=== PATIENT | female | born 1970 | race Caucasian/White ===

== ENCOUNTER → 2017-10-08 | Outpatient (CLI) | payer OTHER ==
[2017-10-08 11:07] VITALS: BP 143/70; PULSE 65; RESP 20; TEMP 97.9; BMI 52.4
[2017-10-08 13:16] LABS: HCT 43.6 % (34.0-46.0); MCH 28.9 pg (25.0-35.0); MCV 90.3 fL (80.0-100.0); Platelet Count 321 k/uL (150-450); RBC 4.83 m/uL (3.80-5.40); RDW 15.1 % (11.5-15.5); WBC 8.8 k/uL (3.8-10.6)
[2017-10-08 13:23] LABS: ALT 33 U/L (9-52); AST 15 U/L (14-36); Albumin 3.7 g/dL (3.5-5.0); Alkaline Phosphatase 82 U/L (38-126); Anion Gap 8 mmol/L; Blood Urea Nitrogen 11 mg/dL (7-17); Carbon Dioxide 27 mmol/L (22-30); Chloride 106 mmol/L (98-107); Cholesterol 150 mg/dL (<200); Glucose 119 mg/dL (74-99); HDL Cholesterol 48 mg/dL (40-60); LDL Cholesterol,Calculated 69 mg/dL (0-99); Potassium 4.2 mmol/L (3.5-5.1); Sodium 141 mmol/L (137-145); Total Bilirubin 0.4 mg/dL (0.2-1.3); Total Protein 6.3 g/dL (6.3-8.2); Triglycerides 163 mg/dL (<150)
[2017-10-08 18:43] LABS: Iron Saturation 23.49 (12.00-45.00)
[2017-10-08 18:54] LABS: Folate, Serum 8.7 ng/mL
[2017-10-08 20:43] LABS: Hemoglobin A1C 6.2 % (4.0-6.0)
--- NOTE | 2017-12-06 14:36 | P.HPBAR ---
Bariatric H&P - History & Physicial H&P Date: 10/08/17 History & Physicial: Visit/CC: 1st visit Patient initial contact: Initial weight: 138.482 kg Initial weight in pounds: 305.30 Height: 5 ft 4 in Initial BMI: 52.4 Last weight: Current weight: 138.482 kg Current weight in pounds: 305.30 Current BMI: 52.4 [place] body weight (based on NIH guidelines): 54.431 kg Excess body weight loss: 0.0% The patient is a 47 year-old F who presents for Bariatric Assessment. DATE OF SERVICE: 10/08/2017 REASON FOR CONSULTATION: Initial bariatric evaluation. HISTORY OF PRESENT ILLNESS: The patient is a 47-year-old female who presents with history of long-standing morbid obesity. She has tried weight loss programs such as Weight Watchers, Adipex, Qsemia and has lost 90 pounds. As a result of her obesity, she has developed lower back pain, knee pain, and bladder incontinence. She had inquired about duodenal switch. No personal family history of esophageal stomach cancer. She denies any food ALLERGIES. No reports of inflammatory bowel disease. She has an aunt with lupus. No reports of diarrhea. Her highest weight was 348 pounds. She has strong family history of morbid obesity including her mother. She has history of snoring. She has family history of diabetes including grandmother. She reports lower back pain including pain. She has history of bladder incontinence. She has family history of gallbladder disease including thyroid disorder. Separately, she often skips breakfast. At her height of 5 feet 4 inches, her ideal body weight is 144 pounds. She is 161 pounds overweight. Her body mass index reduced from 59.9 down to 52.4. PAST MEDICAL HISTORY: 1. Morbid obesity. 2. Body mass index of 59.9 down to 52.4. 3. Lower back pain. 4. Bladder incontinence. PAST SURGICAL HISTORY: 1. Appendectomy. 2. . HOME MEDICATIONS: Denies. ALLERGIES: PENICILLIN gives her rash. CODEINE gives her vomiting. SOCIAL HISTORY: No active tobacco use. FAMILY HISTORY: No family history of ulcerative colitis disease or Crohn's disease. Family history of morbid obesity. No lupus in family. No reports of stomach or esophageal cancer. Family history of diabetes. Family history of gallbladder disease and thyroid disorder. REVIEW OF ORGAN SYSTEMS: CONSTITUTIONAL: At her height of 5 feet 4 inches, her ideal body weight is 144 pounds. She is 161 pounds overweight. Her body mass index reduced from 59.9 down to 52.4. HEENT: Denies any active troubles with vision or hearing. No troubles with swallowing. ENDOCRINE: No diabetes. No hypothyroidism. CARDIOVASCULAR: No reports of palpitations or heart attacks or chest pain. RESPIRATORY: Has daytime somnolence including snoring and sleep apnea. No asthma. GI: Denies any bright red blood per rectum. Does have gastroesophageal reflux disease as described above. MUSCULOSKELETAL: Has lower back pain and joint pain. Has osteoarthritis of the hips and knees. NEURO: No headaches. No seizure disorders. PSYCH: No depression. No suicidal ideation. RHEUMATOLOGIC: No lupus. No rheumatoid arthritis. HEMATOLOGIC: Denies any abnormal bleeding or bruising. No personal history of DVTs. SKIN: No rash. No skin cancer. PHYSICAL EXAM: VITAL SIGNS: Height 5 foot 4 inches, weight 305 pounds. BMI 52.4 Vital Signs Temp 97.9 F 10/08/17 10:58 Pulse 65 10/08/17 10:58 Resp 20 10/08/17 10:58 BP 143/70 10/08/17 10:58 Pulse Ox GENERAL: Well-developed in no acute distress. HEENT: No scleral icterus. Extraocular movements grossly intact. Hears conversational speech. No nasal drainage. NECK: Supple without lymphadenopathy. CHEST: Nonlabored respirations with equal bilateral excursions. CARDIOVASCULAR: Regular rate, regular rhythm. Distal 2+ pulses. ABDOMEN: Obese, soft, nontender, nondistended. MUSCULOSKELETAL: No clubbing, cyanosis. Gross strength 5/5 distal lower extremities. 1+ pre-tibial pitting edema. NEURO: No focal or lateralizing signs. Cranial nerves 2 through 12 grossly within normal limits. PSYCH: Appropriate affect. Alert and oriented to person, place and time. SKIN: Good skin turgor. Well perfused. ASSESSMENT: 1. Morbid obesity due to excess calories. 2. Body mass index of 59.9 down to 52.4. 3. Osteoarthritis of the knees. 4. Hypertensive heart disease. 5. Osteoarthritis of the hips. 6. Dietary surveillance and counseling. 7. Family history of morbid obesity. 8. Gastroesophageal reflux disease. 9. Family history of gallbladder disease. PLAN: 1. Surgical options including a band, gastric bypass, sleeve gastrectomy were described in detail. Alternatives such as gastric balloon including duodenal switch were described. 2. The [place] [facility] data and outcomes calculator were described with surgical options. 3. Recommend a bariatric metabolic panel to evaluate for micro- including macronutrient deficiencies. 4. For history of daytime somnolence, recommend evaluation and treatment for sleep apnea. 5. Dietary surveillance and counseling was reviewed, I have asked increased protein intake to at least 60 grams daily. She has already lost 43 pounds. 6. Will need cardiac risk assessment. 7. Recommend medical risk assessment. 8. Psych assessment per insurance guidelines. 9. Follow up upon completion of upper endoscopy. 10. Recommend 12-lead EKG with history of hypertensive heart disease. 11. Recommend upper endoscopy for history of esophageal reflux disease. Thank you for this consultation. Laboratory Last Values WBC 8.8 k/uL (3.8-10.6) 10/08/17 11:56 RBC 4.83 m/uL (3.80-5.40) 10/08/17 11:56 Hgb 14.0 gm/dL (11.4-16.0) 10/08/17 11:56 Hct 43.6 % (34.0-46.0) 10/08/17 11:56 MCV 90.3 fL (80.0-100.0) 10/08/17 11:56 MCH 28.9 pg (25.0-35.0) 10/08/17 11:56 MCHC 32.0 g/dL (31.0-37.0) 10/08/17 11:56 RDW 15.1 % (11.5-15.5) 10/08/17 11:56 Plt Count 321 k/uL (150-450) 10/08/17 11:56 Sodium 141 mmol/L (137-145) 10/08/17 11:56 Potassium 4.2 mmol/L (3.5-5.1) 10/08/17 11:56 Chloride 106 mmol/L (98-107) 10/08/17 11:56 Carbon Dioxide 27 mmol/L (22-30) 10/08/17 11:56 Anion Gap 8 mmol/L 10/08/17 11:56 BUN 11 mg/dL (7-17) 10/08/17 11:56 Creatinine 0.70 mg/dL (0.52-1.04) 10/08/17 11:56 Est GFR (MDRD) Af Amer >60 (>60 ml/min/1.73 sqM) 10/08/17 11:56 Est GFR (MDRD) Non-Af >60 (>60 ml/min/1.73 sqM) 10/08/17 11:56 Glucose 119 mg/dL (74-99) H 10/08/17 11:[address] Glu mg/dL 131 10/08/17 11:56 Hemoglobin A1c 6.2 % (4.0-6.0) H 10/08/17 11:56 Calcium 9.0 mg/dL (8.4-10.2) 10/08/17 11:56 Iron 66 ug/dL (50-170) 10/08/17 11:56 TIBC 281 ug/dL (228-460) 10/08/17 11:56 Iron Saturation 23.49 (12.00-45.00) 10/08/17 11:56 Ferritin 92.6 ng/mL (10.0-291.0) 10/08/17 11:56 Total Bilirubin 0.4 mg/dL (0.2-1.3) 10/08/17 11:56 AST 15 U/L (14-36) 10/08/17 11:56 ALT 33 U/L (9-52) 10/08/17 11:56 Alkaline Phosphatase 82 U/L (38-126) 10/08/17 11:56 Total Protein 6.3 g/dL (6.3-8.2) 10/08/17 11:56 Albumin 3.7 g/dL (3.5-5.0) 10/08/17 11:56 Triglycerides 163 mg/dL (<150) H 10/08/17 11:56 Cholesterol 150 mg/dL (<200) 10/08/17 11:56 LDL Cholesterol, Calc 69 mg/dL (0-99) 10/08/17 11:56 HDL Cholesterol 48 mg/dL (40-60) 10/08/17 11:56 Vitamin B1 63 ug/L (38-122) 10/08/17 11:56 Vitamin B12 433.0 pg/mL (200.0-944.0) 10/08/17 11:56 Vitamin D 25-Hydroxy 13.0 ng/mL (30.0-100.0) L 10/08/17 11:56 Folate 8.7 ng/mL 10/08/17 11:56 TSH 0.718 mIU/L (0.465-4.680) 10/08/17 11:56 EKG EKG PERFORMED 10/08/17 11:56 Laboratory results reviewed demonstrating hypertriglyceridemia, diabetes type 2 , metabolic syndrome, vitamin D deficiency. EKG was abnormal. Past Medical History History of Any Multi-Drug Resistant Organisms: None Reported Smoking Status: Never smoker Surgical - Exam Vital Signs Temp Pulse Resp BP 97.9 F 65 20 143/70 10/08/17 10:58 10/08/17 10:58 10/08/17 10:58 10/08/17 10:58 Results - Labs 10/08/17 11:56 10/08/17 11:56 Bariatric Checklist Checklist: Plan: Checklist: EGD: 1. Hiatal hernia: 2. H. Pylori: HgbA1c: Vitamin D: Smoking: Never smoker Primary care physician referral: Dr Lawrence Psychiatry clearance: Cardiology clearance: Sleep study: Diet journal: VTE risk score: VTE risk level: Rehab needs at discharge:
== END | disposition home or self-care (01) ==
LOC: BARWHC3 10:40
PROVIDERS: ATTEND Surgery Plastic and Reconstructive Surgery
DX: Z48.815 Encounter for surgical aftercare following surgery on the digestive system (principal); E66.01 Morbid (severe) obesity due to excess calories; M17.0 Bilateral primary osteoarthritis of knee; I11.9 Hypertensive heart disease without heart failure; M16.0 Bilateral primary osteoarthritis of hip; K21.9 Gastro-esophageal reflux disease without esophagitis; Z01.818 Encounter for other preprocedural examination; E88.81 Metabolic syndrome and other insulin resistance; D50.9 Iron deficiency anemia, unspecified; E44.1 Mild protein-calorie malnutrition; E55.9 Vitamin D deficiency, unspecified; E11.9 Type 2 diabetes mellitus without complications; G47.30 Sleep apnea, unspecified; Z68.43 Body mass index [BMI] 50.0-59.9, adult; Z88.0 Allergy status to penicillin; Z88.5 Allergy status to narcotic agent; Z71.3 Dietary counseling and surveillance; Z98.890 Other specified postprocedural states
CPT/HCPCS: 36415; 80053; 80061; 82306; 82607; 82728; 82746; 83036; 83540; 83550; 84425; 84443; 85027; 93005; 99201

== ENCOUNTER 2018-02-10 08:45 | Day surgery (SDC) | payer OTHER ==
[2018-02-08 14:55] VITALS: BMI 51.8
[~2018-02-10 08:45] MED LIST: LACTATED RINGERS 1,000 ML IV SCH
[2018-02-10 09:28] VITALS: TEMP 98
[2018-02-10] MEDS ORDERED: LIDOCAINE 1% 20 ML VIAL (10MG/ML) FOR IV START INTRADERMA ONE (09:29)
[2018-02-10] MEDS ORDERED: LACTATED RINGERS 1,000 ML IV ONE (09:29)
--- NOTE | 2018-02-10 09:50 | P.GSHP ---
History of Present Illness H&P Date: 02/10/18 CHIEF COMPLAINT: GERD HISTORY OF PRESENT ILLNESS: The patient is a 48-year-old female who presents reports gastroesophageal reflux disease. Upper endoscopy was offered for further evaluation and management. PAST MEDICAL HISTORY: Please see list. PAST SURGICAL HISTORY: Please see list. MEDICATIONS: Please see list. ALLERGIES: Please see list. SOCIAL HISTORY: No illicit drug use FAMILY HISTORY: No reports of Crohn disease or ulcerative colitis. REVIEW OF ORGAN SYSTEMS: CONSTITUTIONAL: No reports of fevers or chills. GI: Denies any blood in stools or constipation. PHYSICAL EXAM: VITAL SIGNS: Stable GENERAL: Well-developed and pleasant in no acute distress. HEENT: No scleral icterus. Extraocular movements grossly intact. Moist buccal mucosa. NECK: Supple without lymphadenopathy. CHEST: Unlabored respirations. Equal bilateral excursions. CARDIOVASCULAR: Regular rate and rhythm. Distal 2+ pulses. ABDOMEN: Soft, nondistended. MUSCULOSKELETAL: No clubbing, cyanosis, or edema. ASSESSMENT: 1. Gastroesophageal reflux disease PLAN: 1. Recommend proceeding with an upper endoscopy Past Medical History Past Medical History: Diabetes Mellitus, GERD/Reflux Additional Past Medical History / Comment(s): borderline diabetes-watches diet History of Any Multi-Drug Resistant Organisms: None Reported Past Surgical History: Appendectomy, Section, Hysterectomy Past Anesthesia/Blood Transfusion Reactions: No Reported Reaction Smoking Status: Never smoker - Past Family History Mother Family Medical History: Cancer Medications and Allergies Home Medications Medication Instructions Recorded Confirmed Type Cholecalciferol [Vitamin D3] 1,000 unit PO DAILY 02/08/18 02/08/18 History Allergies Allergy/AdvReac Type Severity Reaction Status Date / Time codeine Allergy Vomiting Verified 02/08/18 12:35 Penicillins Allergy Rash/Hives Verified 02/08/18 12:35 Surgical - Exam Vital Signs Temp Pulse Resp BP Pulse Ox 98.0 F 87 18 127/78 98 02/10/18 09:26 02/10/18 09:26 02/10/18 09:26 02/10/18 09:26 02/10/18 09:26
[2018-02-10] MEDS ORDERED: PROPOFOL 10 MG/ML 20 ML VIAL IV ONE (10:01)
[2018-02-10] MEDS ORDERED: LIDOCAINE 1% INJ 10MG/ML (20 ML MDV) ONE (10:01)
[2018-02-10 10:21] VITALS: RESP 16
--- NOTE | 2018-02-10 10:22 | P.PCN ---
Date of Procedure: 02/10/18 Description of Procedure: PREOPERATIVE DIAGNOSIS: Gastroesophageal reflux disease. Morbid obesity. POSTOPERATIVE DIAGNOSIS: Morbid obesity. Gastritis. Gastroesophageal reflux disease. Diaphragmatic hiatal hernia without obstruction. OPERATION: Esophagogastroduodenoscopy with biopsies along antrum. SURGEON: Gina Ya MD ANESTHESIA: MAC. INDICATIONS: The patient is a 48-year-old female who presents with a history of reflux disease. Benefits and risks of the procedure were described. Informed consent was obtained. DESCRIPTION: The patient was brought into the endoscopy suite and laid in the left lateral decubitus position. An Olympus gastroscope was passed along the posterior oropharynx down to the distal esophagus where the squamocolumnar junction was encountered at 38 cm from the incisors. The stomach was entered and no bile reflux was found. Additional findings are listed below. Biopsies with cold forceps were obtained of the antrum. The first through third portion of the duodenum was examined and unremarkable. Retroflexion of the scope confirmed Hill grade 3 lower esophageal valve. The squamocolumnar junction demostrated LA grade A erosive esophagitis. The stomach was desufflated. The patient tolerated the procedure well. FINDINGS: Squamocolumnar junction 36 cm from the incisors. Diaphragmatic hiatus at 38 cm. Hiatal hernia 2 cm, sliding. Hill grade 3 lower esophageal valve. LA grade A erosive esophagitis. No active duodenitis. Mild gastritis. RECOMMENDATIONS: Further recommendations pending results of pathology report. Upper endoscopy as needed. Plan - Discharge Summary New Discharge Prescriptions: No Action Cholecalciferol [Vitamin D3] 1,000 unit PO DAILY Discharge Medication List Cholecalciferol [Vitamin D3] 1,000 unit PO DAILY 02/08/18 [History]
[2018-02-10 10:37] VITALS: BP 130/78; PULSE 78
== END 2018-02-10 11:15 | disposition home or self-care (01) ==
LOC: ORWHC2ENDO 08:45
PROVIDERS: ATTEND Surgery Plastic and Reconstructive Surgery
DX: K29.50 Unspecified chronic gastritis without bleeding (principal); K22.10 Ulcer of esophagus without bleeding; K21.9 Gastro-esophageal reflux disease without esophagitis; E11.9 Type 2 diabetes mellitus without complications; E66.01 Morbid (severe) obesity due to excess calories; K44.9 Diaphragmatic hernia without obstruction or gangrene; Z88.5 Allergy status to narcotic agent; Z88.0 Allergy status to penicillin; Z90.710 Acquired absence of both cervix and uterus; Z68.43 Body mass index [BMI] 50.0-59.9, adult
CPT/HCPCS: 88305; 43239; J2001; J2704

== ENCOUNTER → 2018-02-22 | Outpatient (CLI) | payer OTHER ==
[2018-02-22 14:14] VITALS: BMI 52.9
== END | disposition home or self-care (01) ==
LOC: BARWHC3 08:44
PROVIDERS: ATTEND Surgery Plastic and Reconstructive Surgery
DX: E66.01 Morbid (severe) obesity due to excess calories (principal)
CPT/HCPCS: 97804

== ENCOUNTER → 2018-02-24 | Outpatient (CLI) | payer OTHER ==
[2018-02-24 15:10] VITALS: BP 141/63; PULSE 82; RESP 16; TEMP 98; BMI 52.7
--- NOTE | 2018-03-20 14:37 | P.PN ---
Subjective Progress Note Date: 02/24/18 DATE OF SERVICE: 02/24/2018 CHIEF COMPLAINT: Bariatric assessment HISTORY OF PRESENT ILLNESS: The patient is a 48-year-old female who presents with history of long-standing morbid obesity. She has developed sleep apnea and hypertensive heart disease. She initially inquired of the duodenal switch and is evaluating her bariatric options. She completed an upper endoscopy. She is undergoing medical supervised weight loss. Her highest weight was 348 pounds. Since her last visit 5 months ago, she has gained 2 pounds. Today she comes in 307 pounds. Her previous weight was 305 pounds. At her height of 5 feet 4 inches, her ideal body weight is 144 pounds. She is 163 pounds overweight. Her body mass index reduced from 59.9 down to 52.8. PAST MEDICAL HISTORY: 1. Morbid obesity. 2. Body mass index of 59.9 down to 52.4. 3. Lower back pain. 4. Bladder incontinence. PAST SURGICAL HISTORY: 1. Appendectomy. 2. . HOME MEDICATIONS: Denies. ALLERGIES: PENICILLIN gives her rash. CODEINE gives her vomiting. SOCIAL HISTORY: No active tobacco use. FAMILY HISTORY: No family history of ulcerative colitis disease or Crohn's disease. Family history of morbid obesity. No lupus in family. No reports of stomach or esophageal cancer. Family history of diabetes. Family history of gallbladder disease and thyroid disorder. REVIEW OF ORGAN SYSTEMS: CONSTITUTIONAL: Her highest weight was 348 pounds. Since her last visit 5 months ago, she has gained 2 pounds. Today she comes in 307 pounds. Her previous weight was 305 pounds. At her height of 5 feet 4 inches, her ideal body weight is 144 pounds. She is 163 pounds overweight. Her body mass index reduced from 59.9 down to 52.8. HEENT: Denies any active troubles with vision or hearing. No troubles with swallowing. ENDOCRINE: No diabetes. No hypothyroidism. CARDIOVASCULAR: No reports of palpitations or heart attacks or chest pain. RESPIRATORY: Has daytime somnolence including snoring and sleep apnea. No asthma. GI: Denies any bright red blood per rectum. Does have gastroesophageal reflux disease as described above. MUSCULOSKELETAL: Has lower back pain and joint pain. Has osteoarthritis of the hips and knees. NEURO: No headaches. No seizure disorders. PSYCH: No depression. No suicidal ideation. RHEUMATOLOGIC: No lupus. No rheumatoid arthritis. HEMATOLOGIC: Denies any abnormal bleeding or bruising. No personal history of DVTs. SKIN: No rash. No skin cancer. PHYSICAL EXAM: VITAL SIGNS: Height 5 foot 4 inches, weight 305 pounds. BMI 52.4 Vital Signs Temp 97.9 F 10/08/17 10:58 Pulse 65 10/08/17 10:58 Resp 20 10/08/17 10:58 BP 143/70 10/08/17 10:58 Pulse Ox GENERAL: Well-developed in no acute distress. HEENT: No scleral icterus. Extraocular movements grossly intact. Hears conversational speech. No nasal drainage. NECK: Supple without lymphadenopathy. CHEST: Nonlabored respirations with equal bilateral excursions. CARDIOVASCULAR: Regular rate, regular rhythm. Distal 2+ pulses. ABDOMEN: Obese, soft, nontender, nondistended. MUSCULOSKELETAL: No clubbing, cyanosis. Gross strength 5/5 distal lower extremities. 1+ pre-tibial pitting edema. NEURO: No focal or lateralizing signs. Cranial nerves 2 through 12 grossly within normal limits. PSYCH: Appropriate affect. Alert and oriented to person, place and time. SKIN: Good skin turgor. Well perfused. LABS: Laboratory Last Values WBC 8.8 k/uL (3.8-10.6) 10/08/17 11:56 RBC 4.83 m/uL (3.80-5.40) 10/08/17 11:56 Hgb 14.0 gm/dL (11.4-16.0) 10/08/17 11:56 Hct 43.6 % (34.0-46.0) 10/08/17 11:56 MCV 90.3 fL (80.0-100.0) 10/08/17 11:56 MCH 28.9 pg (25.0-35.0) 10/08/17 11:56 MCHC 32.0 g/dL (31.0-37.0) 10/08/17 11:56 RDW 15.1 % (11.5-15.5) 10/08/17 11:56 Plt Count 321 k/uL (150-450) 10/08/17 11:56 Sodium 141 mmol/L (137-145) 10/08/17 11:56 Potassium 4.2 mmol/L (3.5-5.1) 10/08/17 11:56 Chloride 106 mmol/L (98-107) 10/08/17 11:56 Carbon Dioxide 27 mmol/L (22-30) 10/08/17 11:56 Anion Gap 8 mmol/L 10/08/17 11:56 BUN 11 mg/dL (7-17) 10/08/17 11:56 Creatinine 0.70 mg/dL (0.52-1.04) 10/08/17 11:56 Est GFR (MDRD) Af Amer >60 (>60 ml/min/1.73 sqM) 10/08/17 11:56 Est GFR (MDRD) Non-Af >60 (>60 ml/min/1.73 sqM) 10/08/17 11:56 Glucose 119 mg/dL (74-99) H 10/08/17 11:[address] Glu mg/dL 131 10/08/17 11:56 Hemoglobin A1c 6.2 % (4.0-6.0) H 10/08/17 11:56 Calcium 9.0 mg/dL (8.4-10.2) 10/08/17 11:56 Iron 66 ug/dL (50-170) 10/08/17 11:56 TIBC 281 ug/dL (228-460) 10/08/17 11:56 Iron Saturation 23.49 (12.00-45.00) 10/08/17 11:56 Ferritin 92.6 ng/mL (10.0-291.0) 10/08/17 11:56 Total Bilirubin 0.4 mg/dL (0.2-1.3) 10/08/17 11:56 AST 15 U/L (14-36) 10/08/17 11:56 ALT 33 U/L (9-52) 10/08/17 11:56 Alkaline Phosphatase 82 U/L (38-126) 10/08/17 11:56 Total Protein 6.3 g/dL (6.3-8.2) 10/08/17 11:56 Albumin 3.7 g/dL (3.5-5.0) 10/08/17 11:56 Triglycerides 163 mg/dL (<150) H 10/08/17 11:56 Cholesterol 150 mg/dL (<200) 10/08/17 11:56 LDL Cholesterol, Calc 69 mg/dL (0-99) 10/08/17 11:56 HDL Cholesterol 48 mg/dL (40-60) 10/08/17 11:56 Vitamin B1 63 ug/L (38-122) 10/08/17 11:56 Vitamin B12 433.0 pg/mL (200.0-944.0) 10/08/17 11:56 Vitamin D 25-Hydroxy 13.0 ng/mL (30.0-100.0) L 10/08/17 11:56 Folate 8.7 ng/mL 10/08/17 11:56 TSH 0.718 mIU/L (0.465-4.680) 10/08/17 11:56 EKG EKG PERFORMED 10/08/17 11:56 Glucose elevated Hemoglobin A1c elevated Triglycerides elevated Vitamin D low EGD FINDINGS: Squamocolumnar junction 36 cm from the incisors. Diaphragmatic hiatus at 38 cm. Hiatal hernia 2 cm, sliding. Hill grade 3 lower esophageal valve. LA grade A erosive esophagitis. No active duodenitis. Mild gastritis. Final Pathologic Diagnosis GASTRIC ANTRUM, BIOPSY: MODERATE CHRONIC GASTRITIS WITH FOCAL INTESTINAL METAPLASIA. EKG abnormal ASSESSMENT: 1. Morbid obesity due to excess calories. 2. Body mass index of 59.9 down to 52.4. 3. Osteoarthritis of the knees. 4. Hypertensive heart disease. 5. Osteoarthritis of the hips. 6. Dietary surveillance and counseling. 7. Family history of morbid obesity. 8. Gastroesophageal reflux disease. 9. Family history of gallbladder disease. 10. Hiatal hernia 11. Elevated hemoglobin A1c, prediabetes 12. Obstructive sleep apnea 13. Abnormal EKG 14. Vitamin D deficiency 15. Hypertriglyceridemia PLAN: 1. Recommend low-carb high-protein diet. 2. Recommend sleep study for obstructive sleep 3. EKG reviewed that is abnormal. Recommend cardiac risk assessment. 4. The bariatric consent form was reviewed in detail. 5. Vitamin D supplement 10,000 units daily advised. Objective - Vital Signs Vital signs: Vital Signs Temp 98.0 F 02/24/18 15:08 Pulse 82 02/24/18 15:08 Resp 16 02/24/18 15:08 BP 141/63 02/24/18 15:08 Pulse Ox Intake & Output 02/23/18 02/24/18 02/24/18 18:59 06:59 18:59 Weight 139.48 kg
== END | disposition home or self-care (01) ==
LOC: BARWHC3 13:37
PROVIDERS: ATTEND Surgery Plastic and Reconstructive Surgery
DX: E66.01 Morbid (severe) obesity due to excess calories (principal); I11.9 Hypertensive heart disease without heart failure; M17.0 Bilateral primary osteoarthritis of knee; M16.0 Bilateral primary osteoarthritis of hip; K21.9 Gastro-esophageal reflux disease without esophagitis; K44.9 Diaphragmatic hernia without obstruction or gangrene; R73.03 Prediabetes; G47.33 Obstructive sleep apnea (adult) (pediatric); R94.31 Abnormal electrocardiogram [ECG] [EKG]; E55.9 Vitamin D deficiency, unspecified; E78.1 Pure hyperglyceridemia; Z98.890 Other specified postprocedural states; Z88.5 Allergy status to narcotic agent; Z71.3 Dietary counseling and surveillance; Z83.79 Family history of other diseases of the digestive system; Z88.0 Allergy status to penicillin; Z83.3 Family history of diabetes mellitus; Z68.43 Body mass index [BMI] 50.0-59.9, adult
CPT/HCPCS: 99211

== ENCOUNTER → 2018-06-02 | Outpatient (CLI) | payer OTHER ==
[2018-06-02 13:29] VITALS: BP 143/83; PULSE 73; RESP 16; TEMP 98.6; BMI 53.1
--- NOTE | 2018-06-02 14:18 | P.PN ---
Subjective Progress Note Date: 06/02/18 DATE OF SERVICE: 06/02/2018 CHIEF COMPLAINT: Bariatric assessment HISTORY OF PRESENT ILLNESS: The patient is a 48-year-old female who presents with history of long-standing morbid obesity. She has developed sleep apnea and hypertensive heart disease. She completed medical supervised weight loss. Her highest weight was 348 pounds. Since her last visit 3 months ago, she has gained 3 pounds. Today she comes in 309 pounds. Her previous weight was 306 pounds. At her height of 5 feet 4 inches, her ideal body weight is 144 pounds. She is 165 pounds overweight. Her body mass index reduced from 59.9 down to 53.2. She has completed her medical supervised weight loss. She reports gallbladder symptoms including right upper quadrant abdominal pain especially after eating fatty foods. PAST MEDICAL HISTORY: 1. Morbid obesity. 2. Body mass index of 59.9, initial 3. Lower back pain. 4. Bladder incontinence. PAST SURGICAL HISTORY: 1. Appendectomy. 2. . HOME MEDICATIONS: Denies. ALLERGIES: PENICILLIN gives her rash. CODEINE gives her vomiting. SOCIAL HISTORY: No active tobacco use. FAMILY HISTORY: No family history of ulcerative colitis disease or Crohn's disease. Family history of morbid obesity. No lupus in family. No reports of stomach or esophageal cancer. Family history of diabetes. Family history of gallbladder disease and thyroid disorder. REVIEW OF ORGAN SYSTEMS: CONSTITUTIONAL: Her highest weight was 348 pounds. Since her last visit 3 months ago, she has gained 3 pounds. Today she comes in 309 pounds. Her previous weight was 306 pounds. At her height of 5 feet 4 inches, her ideal body weight is 144 pounds. She is 165 pounds overweight. Her body mass index reduced from 59.9 down to 53.2. HEENT: Denies any active troubles with vision or hearing. No troubles with swallowing. ENDOCRINE: No diabetes. No hypothyroidism. CARDIOVASCULAR: No reports of palpitations or heart attacks or chest pain. RESPIRATORY: Has daytime somnolence including snoring and sleep apnea. No asthma. GI: Denies any bright red blood per rectum. Does have gastroesophageal reflux disease as described above. MUSCULOSKELETAL: Has lower back pain and joint pain. Has osteoarthritis of the hips and knees. NEURO: No headaches. No seizure disorders. PSYCH: No depression. No suicidal ideation. RHEUMATOLOGIC: No lupus. No rheumatoid arthritis. HEMATOLOGIC: Denies any abnormal bleeding or bruising. No personal history of DVTs. SKIN: No rash. No skin cancer. PHYSICAL EXAM: VITAL SIGNS: Height 5 foot 4 inches, weight 309 pounds. BMI 53.2 Vital Signs Temp 98.6 F 06/02/18 13:26 Pulse 73 06/02/18 13:26 Resp 16 06/02/18 13:26 BP 143/83 06/02/18 13:26 Pulse Ox GENERAL: Well-developed in no acute distress. HEENT: No scleral icterus. Extraocular movements grossly intact. Hears conversational speech. No nasal drainage. NECK: Supple without lymphadenopathy. CHEST: Nonlabored respirations with equal bilateral excursions. CARDIOVASCULAR: Regular rate, regular rhythm. Distal 2+ pulses. ABDOMEN: Obese, soft, nontender, nondistended. MUSCULOSKELETAL: No clubbing, cyanosis. Gross strength 5/5 distal lower extremities. NEURO: No focal or lateralizing signs. Cranial nerves 2 through 12 grossly within normal limits. PSYCH: Appropriate affect. Alert and oriented to person, place and time. SKIN: Good skin turgor. Well perfused. ASSESSMENT: 1. Morbid obesity due to excess calories. 2. Body mass index of 59.9 down to 53.2. 3. Osteoarthritis of the knees. 4. Hypertensive heart disease. 5. Osteoarthritis of the hips. 6. Dietary surveillance and counseling. 7. Family history of morbid obesity. 8. Gastroesophageal reflux disease. 9. Family history of gallbladder disease. 10. Hiatal hernia 11. Elevated hemoglobin A1c, prediabetes 12. Obstructive sleep apnea 13. Abnormal EKG 14. Vitamin D deficiency 15. Hypertriglyceridemia PLAN: 1. All her bariatric profile was reviewed. 2. Recommend ultrasound of gallbladder for gallstones. 3. She has agreed to proceed with her gastric bypass. 4. Bariatric options between a sleeve, band and a Prateek-en-Y gastric bypass were reviewed in detail. She elected for a gastric bypass. Robotic assisted approach described. 5. The [place] [facility] Data was also reviewed with benefits and risks as described. 6. An 8 page second-generation bariatric consent form was reviewed in detail including potential of bleeding, infection, leaks, adequate weight loss, nutritional deficiencies which he demonstrated understanding of the risks. 7. A 2 week high-protein low caloric 800 kcal diet described to address hepatomegaly. 8. Preoperative labs including complete metabolic panel and CBC with type and screen recommended. 9. DVT prophylaxis per [place] [facility] collaborative. 10. Antibiotic prophylaxis. 11. Inpatient hospitalization anticipated for more than 2 nights. 11. All questions and concerns were addressed with the patient. 12. Recommended dietary classes. Objective - Vital Signs Vital signs: Vital Signs Temp 98.6 F 06/02/18 13:26 Pulse 73 06/02/18 13:26 Resp 16 06/02/18 13:26 BP 143/83 06/02/18 13:26 Pulse Ox Intake & Output 06/01/18 06/02/18 06/02/18 18:59 06:59 18:59 Weight 140.642 kg
== END | disposition home or self-care (01) ==
LOC: BARWHC3 13:12
PROVIDERS: ATTEND Surgery Plastic and Reconstructive Surgery
DX: E66.01 Morbid (severe) obesity due to excess calories (principal); K21.9 Gastro-esophageal reflux disease without esophagitis; G47.33 Obstructive sleep apnea (adult) (pediatric); I11.9 Hypertensive heart disease without heart failure; R10.11 Right upper quadrant pain; M17.0 Bilateral primary osteoarthritis of knee; M16.0 Bilateral primary osteoarthritis of hip; R73.03 Prediabetes; K44.9 Diaphragmatic hernia without obstruction or gangrene; R94.31 Abnormal electrocardiogram [ECG] [EKG]; E55.9 Vitamin D deficiency, unspecified; E78.1 Pure hyperglyceridemia; Z71.3 Dietary counseling and surveillance; Z83.49 Family history of other endocrine, nutritional and metabolic diseases; Z83.79 Family history of other diseases of the digestive system; Z88.0 Allergy status to penicillin; Z68.43 Body mass index [BMI] 50.0-59.9, adult; Z88.5 Allergy status to narcotic agent; Z98.890 Other specified postprocedural states
CPT/HCPCS: 99211

== ENCOUNTER 2018-06-21 11:00 | Inpatient (IN) | payer OTHER ==
[2018-07-05] MEDS ORDERED: DEXAMETHASONE SOD PHOSPHATE 10 MG/ML 1 ML VIAL IV ONE (05:20)
[2018-07-05] MEDS ORDERED: ONDANSETRON 4 MG/2 ML VIAL IVP ONE (05:20)
[2018-07-05] MEDS ORDERED: SCOPOLAMINE 1.5MG/72HR PATCH TRANSDERM ONE (05:20)
[2018-07-05] MEDS ORDERED: LIDOCAINE 1% 20 ML VIAL (10MG/ML) FOR IV START INTRADERMA PRN (05:20)
[2018-07-05] MEDS ORDERED: fentaNYL (PF) 50 MCG/ML 2 ML AMP IV PRN (05:20)
[2018-07-05] MEDS ORDERED: ENOXAPARIN 40 MG/0.4 ML SYRINGE SQ STA (07:36)
[2018-07-05] MEDS ORDERED: CHLORHEXIDINE GLUCONATE 15 ML CUP MUCOUS MEM ONE (07:36)
[2018-07-05] MEDS ORDERED: PANTOPRAZOLE 40 MG/10 ML VIAL IV STA (07:36)
[2018-07-05] MEDS ORDERED: SCOPOLAMINE 1.5MG/72HR PATCH TRANSDERM STA (07:36)
--- NOTE | 2018-07-05 07:36 | P.GSHP ---
History of Present Illness H&P Date: 07/05/18 DATE OF SERVICE: 07/05/2018 CHIEF COMPLAINT: Morbid obesity HISTORY OF PRESENT ILLNESS: The patient is a 48-year-old female who presents with history of long-standing morbid obesity. She has developed sleep apnea and hypertensive heart disease. She is looking into the gastric bypass. She completed an upper endoscopy. She is completed medical supervised weight loss. Her highest weight was 348 pounds. At her height of 5 feet 4 inches, her ideal body weight is 144 pounds. She is 163 pounds overweight. Her body mass index reduced from 59.9 down to 52.8. PAST MEDICAL HISTORY: 1. Morbid obesity. 2. Body mass index of 59.9 down to 52.4. 3. Lower back pain. 4. Bladder incontinence. PAST SURGICAL HISTORY: 1. Appendectomy. 2. . HOME MEDICATIONS: Denies. ALLERGIES: PENICILLIN gives her rash. CODEINE gives her vomiting. SOCIAL HISTORY: No active tobacco use. FAMILY HISTORY: No family history of ulcerative colitis disease or Crohn's disease. Family history of morbid obesity. No lupus in family. No reports of stomach or esophageal cancer. Family history of diabetes. Family history of gallbladder disease and thyroid disorder. REVIEW OF ORGAN SYSTEMS: CONSTITUTIONAL: Her highest weight was 348 pounds. Since her last visit 5 months ago, she has gained 2 pounds. Today she comes in 307 pounds. Her previous weight was 305 pounds. At her height of 5 feet 4 inches, her ideal body weight is 144 pounds. She is 163 pounds overweight. Her body mass index reduced from 59.9 down to 52.8. HEENT: Denies any active troubles with vision or hearing. No troubles with swallowing. ENDOCRINE: No diabetes. No hypothyroidism. CARDIOVASCULAR: No reports of palpitations or heart attacks or chest pain. RESPIRATORY: Has daytime somnolence including snoring and sleep apnea. No asthma. GI: Denies any bright red blood per rectum. Does have gastroesophageal reflux disease as described above. MUSCULOSKELETAL: Has lower back pain and joint pain. Has osteoarthritis of the hips and knees. NEURO: No headaches. No seizure disorders. PSYCH: No depression. No suicidal ideation. RHEUMATOLOGIC: No lupus. No rheumatoid arthritis. HEMATOLOGIC: Denies any abnormal bleeding or bruising. No personal history of DVTs. SKIN: No rash. No skin cancer. PHYSICAL EXAM: VITAL SIGNS: Height 5 foot 4 inches, weight 305 pounds. BMI 52.4 GENERAL: Well-developed in no acute distress. HEENT: No scleral icterus. Extraocular movements grossly intact. Hears conversational speech. No nasal drainage. NECK: Supple without lymphadenopathy. CHEST: Nonlabored respirations with equal bilateral excursions. CARDIOVASCULAR: Regular rate, regular rhythm. Distal 2+ pulses. ABDOMEN: Obese, soft, nontender, nondistended. MUSCULOSKELETAL: No clubbing, cyanosis. Gross strength 5/5 distal lower extremities. 1+ pre-tibial pitting edema. NEURO: No focal or lateralizing signs. Cranial nerves 2 through 12 grossly within normal limits. PSYCH: Appropriate affect. Alert and oriented to person, place and time. SKIN: Good skin turgor. Well perfused. ASSESSMENT: 1. Morbid obesity due to excess calories. 2. Body mass index of 59.9 down to 52.4. 3. Osteoarthritis of the knees. 4. Hypertensive heart disease. 5. Osteoarthritis of the hips. 6. Dietary surveillance and counseling. 7. Family history of morbid obesity. 8. Gastroesophageal reflux disease. 9. Family history of gallbladder disease. 10. Hiatal hernia 11. Elevated hemoglobin A1c, prediabetes 12. Obstructive sleep apnea 13. Abnormal EKG 14. Vitamin D deficiency 15. Hypertriglyceridemia PLAN: 1. Benefits and risks of gastric bypass robotic approach was described in detail. 2. Inpatient hospitalization over 2 nights described. 3. DVT prophylaxis. 4. Antibiotic prophylaxis. Past Medical History Past Medical History: Sleep Apnea/CPAP/BIPAP Additional Past Medical History / Comment(s): borderline diabetes-watches diet, cpap machine History of Any Multi-Drug Resistant Organisms: None Reported Past Surgical History: Appendectomy, Section, Hysterectomy Past Anesthesia/Blood Transfusion Reactions: No Reported Reaction Past Psychological History: No Psychological Hx Reported Smoking Status: Never smoker Past Alcohol Use History: None Reported Past Drug Use History: None Reported - Past Family History Mother Family Medical History: Cancer Medications and Allergies Home Medications Medication Instructions Recorded Confirmed Type Cholecalciferol [Vitamin D3] 1,000 unit PO DAILY 02/08/18 06/23/18 History Calcium Citrate 250 mg PO DAILY 02/22/18 06/23/18 History Allergies Allergy/AdvReac Type Severity Reaction Status Date / Time codeine Allergy Vomiting Verified 06/23/18 15:33 Penicillins Allergy Rash/Hives Verified 06/23/18 15:33
[2018-07-05] MEDS: LACTATED RINGERS 1,000 ML IV SCH (08:13)
[2018-07-05] MEDS ORDERED: BUPIVACAIN-EPI 0.5%-1:200,000 30 ML VIAL SQ ONE ×2 (09:05→10:19)
[2018-07-05] MEDS ORDERED: LIDOCAINE 1% INJ 10MG/ML (20 ML MDV) ONE (09:45)
[2018-07-05] MEDS ORDERED: MIDAZOLAM 2 MG/2 ML VIAL ONE (09:45)
[2018-07-05] MEDS ORDERED: LABETALOL 5 MG/ML VIAL MDV ONE (09:45)
[2018-07-05] MEDS ORDERED: PROPOFOL 10 MG/ML 20 ML VIAL IV ONE (09:45)
[2018-07-05] MEDS ORDERED: SUCCINYLCHOLINE CHLORIDE 100 MG/5 ML SYR IV ONE (09:45)
[2018-07-05] MEDS ORDERED: GLYCOPYRROLATE 0.2 MG/ML 2 ML VIAL ONE (09:45)
[2018-07-05] MEDS ORDERED: HYDROmorphone (PF) 1 MG/ML ONE (09:45)
[2018-07-05] MEDS ORDERED: NEOSTIGMINE 1 MG/ML 10 ML VIAL ONE (09:45)
[2018-07-05] MEDS ORDERED: ROCURONIUM BROMIDE 10 MG/ML 10 ML VIAL IV ONE (09:45)
[2018-07-05] MEDS ORDERED: INDOCYANINE GREEN 25 MG VIAL IV ONE (09:45)
[2018-07-05] MEDS ORDERED: fentaNYL (PF) 50 MCG/ML 2 ML AMP ONE (09:45)
[2018-07-05] MEDS ORDERED: ePHEDrine SULFATE/0.9% NACL/PF 50 MG/5 ML SYRINGE IV ONE (09:45)
[2018-07-05] MEDS ORDERED: INDOCYANINE GREEN 25 MG VIAL IV STA (10:13)
[2018-07-05] MEDS ORDERED: LACTATED RINGERS 1,000 ML IV ONE (11:00)
[2018-07-05] MEDS ORDERED: diphenhydrAMINE 50 MG/ML 1 ML VIAL IVP PRN (13:29)
[2018-07-05] MEDS ORDERED: NALOXONE 0.4 MG/ML 1 ML VIAL IV PRN (13:29)
[2018-07-05] MEDS ORDERED: ACETAMINOPHEN IV (For NPO) 1,000 MG in EMPTY BAG 1 BAG IVPB ONE (13:29)
--- NOTE | 2018-07-05 13:29 | P.OP ---
Date of Procedure: 07/05/18 Description of Procedure: SURGEON: JYOTI PERERA MD PUBLISHING DIRECTOR: 1. DEYANIRA GARCIA 2. BJORN BASILIO PREOPERATIVE DIAGNOSES: 1. Morbid obesity due to excess calories. 2. Body mass index of 59.9 down to 52.4. 3. Osteoarthritis of the knees. 4. Hypertensive heart disease. 5. Osteoarthritis of the hips. 6. Dietary surveillance and counseling. 7. Family history of morbid obesity. 8. Gastroesophageal reflux disease. 9. Family history of gallbladder disease. 10. Hiatal hernia 11. Elevated hemoglobin A1c, prediabetes 12. Obstructive sleep apnea 13. Abnormal EKG 14. Vitamin D deficiency 15. Hypertriglyceridemia 16. Symptomatic gallstones POSTOPERATIVE DIAGNOSES: 1. Morbid obesity due to excess calories. 2. Body mass index of 59.9 down to 52.4. 3. Osteoarthritis of the knees. 4. Hypertensive heart disease. 5. Osteoarthritis of the hips. 6. Dietary surveillance and counseling. 7. Family history of morbid obesity. 8. Gastroesophageal reflux disease. 9. Family history of gallbladder disease. 10. Hiatal hernia 11. Elevated hemoglobin A1c, prediabetes 12. Obstructive sleep apnea 13. Abnormal EKG 14. Vitamin D deficiency 15. Hypertriglyceridemia 16. Symptomatic gallstones OPERATION: 1. Robotic-assisted da Ross Xi laparoscopic cholecystectomy, multiport with FIREFLY 2. Robotic assisted da Ross Xi laparoscopic Alan-en-Y gastric bypass, 100 cm antecolic antegastric Alan limb, with 25 mm EEA. 3. Intraoperative esophagogastrojejunoscopy. ANESTHESIA: GETA and local ESTIMATED BLOOD LOSS: 5 mL SPECIMENS REMOVED: Gallbladder COMPLICATIONS: NONE. INDICATIONS: The patient is a 48-year-old female who presents with history of long-standing morbid obesity. She has developed sleep apnea and hypertensive heart disease. She is looking into the gastric bypass. She completed an upper endoscopy. She is completed medical supervised weight loss. Her highest weight was 348 pounds. At her height of 5 feet 4 inches, her ideal body weight is 144 pounds. She is 163 pounds overweight. Her body mass index reduced from 59.9 down to 52.8. Today she comes in weighing 297 pounds. Additionally, patient had symptomatic gallstones confirmed on ultrasound. She now presents to undergo robotic assisted gastric bypass and cholecystectomy. A second- generation bariatric consent form was described in detail including the possibility of protein malnutrition, leaks, gastrojejunal stricture, venous thrombosis, need for further surgery for which she demonstrated understanding. Benefits and risks of the procedure were described at length. Informed consent was obtained. DESCRIPTION: The patient was brought into the operating room theater. She was placed supine. She had received Lovenox subcutaneously for DVT prophylaxis. Additionally she Peridex oral solution as an oral decontaminant was placed per anesthesia. After general induction, the abdomen was prepped and draped in standard sterile fashion. Ioban draping was placed along the abdomen. A robotic da Ross Xi system was prepped and primed. The xiphoid to umbilicus was measured of 24 cm. Proposed port sites were marked with indelible marker along the anterior axillary line bilaterally, mid clavicular line bilaterally with each port marked 10 cm from each other. The acute care certified nursing assistant port was marked along the right lateral lower abdominal wall. The robotic stapler port was marked for the right midclavicular line including along the left midclavicular line. A 5 mm 0 degrees laparoscopic trocar entry was performed along the left upper quadrant. The abdomen was insufflated to 15 mmHg pressure, which she tolerated well. Diagnostic laparoscopy demonstrated no injury to bowel, viscera, or mesentery. The liver surface was sharp and unremarkable consistent with her 2 week high-protein low calorie diet. No large hiatal hernia was encountered. An 8 mm camera port was placed left lateral to the umbilicus at the epigastrium , 15 cm distal to the xiphoid. Next, 12-mm robot stapler port was placed along the right mid abdomen. An 12 mm port was exchanged along the left upper quadrant. An 8 mm port was placed on the left lateral abdominal wall under direct localization. Another 8-mm port was placed along the right upper lateral abdominal wall. Please note that the ports were placed 18 to 20 cm away from the target anatomy of the stomach. Care was taken to check that each robotic arm was safely away from collision with the bed or the patient. At the epigastrium, a medium sized Kaur liver retractor was placed under direct visualization with the Iron Sterilization Technician placed under the right shoulder of the patient. The patient was repositioned in reverse Trendelenburg position at 14-degress after lowering the bed. The robot was docked over the patient. Using grasper for arm 3, a grasper for arm 1, including vessel sealer for arm 4 , the robotic system was docked and primed as described. Instruments were interchanged by the acute care certified nursing assistant including endoscissors, the needle pile driver operator helper, and stapler. I had sat at the console. The patient was injected with indocyanine green. The gallbladder fundus was retracted over the dome of the liver. Initial attention was brought to the infundibulum which was gently retracted in the inferior lateral approach. Using a grasper, the cystic duct including the cystic artery was carefully skeletonized. FIREFLY was used to identify the cystic artery and cystic structures. Large PLASTIC clips were used throughout the entire case. Using a clip retail store assistant 2 clips were placed proximally, and 1 clip was placed distally along the cystic duct and then cauterized with the cautery. Again care was taken to avoid any injury to the biliary tree as the common bile duct was clearly visualized during this portion of dissection. Next, the cystic artery was similarly clipped and cauterized. Electro-Bovie cautery was used to remove the gallbladder from the hepatic fossa. Hemostasis was checked and found to be adequate. The robot was undocked. The robotic arms were repositioned for the gastric bypass portion of the case. Next, the transverse mesocolon was reflected into the upper abdomen preparing for the jejunojejunostomy portion of the case. The ligament of Treitz was identified and measured 60 cm antegrade and marked using 3-0 Silk. The jejunum was divided at the 60 cm point using 45-mm white loads above the suture measurement. The biliopancreatic limb was held in place. The Alan limb was measured 100 cm in an antegrade fashion to avoid tension along the proposed gastrojejunal anastomosis. At 100 cm along the anti-mesenteric border of the Alan limb, a jejunojejunostomy was proposed whereby enterotomies were created along the biliopancreatic limb including the Alan limb using a Bovie cautery. A stay suture of 3-0 Slik was placed to align and create the anastomosis. The enterotomies along the anti-mesenteric borders were created followed by unidirectional fire from the patient's right side using 2 - 45 mm white load Smart Wire Grid technology robotic stapler. The jejunojejunostomy was found to be hemostatic. The enterotomy was closed after horizontal mattress stitch of 3-0 silk used to elevate the enterotomy followed by closure with the robotic stapler white load. The jejunal limb was temporarily tacked along the left upper quadrant. Attention was now brought to the creation of the gastrojejunostomy. Along the lesser curvature of the stomach between the second and third veins, dissection was made along the retrogastric space to allow first firing of the robotic staple. Blue loads of 6 - 45 mm staplers were used to divide the stomach to create the gastric pouch. The patient was then prepared for placement of a Orvil. The patient was Mallampati 2. A 25-mm Orvil was selected for placement by the nurse bulb filler. The Orvil tubing was placed anterior to the staple line of the gastric pouch and brought out through the left inferior lateral port. I re-scrubbed into the case. The robotic arms were temporarily undocked. The Orvil was then carefully and successfully navigated with the help of the nurse bulb filler into the gastric pouch. The sutures were identified and divided. The tubing was from the 25 mm anvil. As the Orvil had been placed, the blind jejunal limb was brought proximally into the upper abdomen. No torsion was found upon the Alan limb. Mild tension was identified as the limb was brought along the upper abdomen. The blind jejunal limb was previously opened using endo -scissors with cautery. The 25-mm EEA stapler was brought through the left anterior lateral port site from the left side. The EEA stapler was brought through the open jejunal limb and its needle was deployed at the antimesenteric border where the anvil were mated for approximately 1 minute upon firing. The stapler was removed after irrigating the shaft of the instrument with warm normal saline. Donuts were found to be intact and on both sides. The da Ross Xi robot arms were then re-docked. I sat at the console. The open jejunal limb defect was closed using 45 mm white loads after releasing any tension from the blind jejunal limb. Care was taken to avoid any long blind limb to avoid candycane syndrome. Reinforcement sutures were placed along the gastrojejunal anastomosis using 3-0 Vicryl. The Handy and jejunojejunostomy mesenteric defects were obliterated by her intra-abdominal fat. I then went to the head of the bed to perform the esophagogastrojejunoscopy and a leak test. An Olympus gastroscope was passed along the posterior oropharynx which was unremarkable for any injury to the vocal cords. The scope was passed down to the proximal portion of the pouch, whereby no active bleeding was encountered. Excellent visualization of the gastrojejunostomy anastomosis, including the Alan limb was encountered with endoscopic image obtained. The anastomosis was found to be patent. The gastrointestinal tract was desufflated. No evidence of intraoperative leak was encountered as the gastric pouch and anastomosis were submerged under normal saline solution. The robot was then undocked. I then went back to the bedside of the patient, whereby with coordinated effort of the acute care certified nursing assistant, irrigation was aspirated from the upper abdominal cavity. Tisseel was placed circumferentially over the anastomosis of the gastrojejunostomy. The fascial defect of the EEA stapler was closed with her fascia and subcutaneous tissue. All instruments and pneumoperitoneum were evacuated from the abdominal cavity. The port correlating with the EEA stapler device was cleansed with normal saline solution and hydrogen peroxide. The rest of incisions were reapproximated using 4-0 Monocryl in an interrupted subcuticular fashion. Local anesthetic was infiltrated along the skin for postop analgesia. Liquid glue was applied to the skin. OptiFoam dressing was placed along the EEA stapler site. At the end of the procedure, needle, sponge and instrument count had been verified correct by the surgical physician assistant. She had tolerated the procedure well and was extubated and taken to the postanesthesia unit in stable condition. Intraoperative findings were described to the patient's family who were very pleased with the level of care. Total console time 95 minutes for gastric bypass Total console time 19 minutes for cholecystectomy Operative Findings: 1. Biliopancreatic limb 60 cm 2. Bypass performed using 100 cm alan limb secondary to avoid increased tension at 150 cm. 3. Correia defect and jejunojejunostomy defect obliterated by moderate intra- abdominal fat. 4. Leak test negative with gastrojejunal anastomosis patent and hemostatic. 5. Robotic staplers total of 13 combined blue white 8 -45 mm used and 7 staplers blue used to gastric pouch 6. Reinforcement sutures were placed along the gastrojejunal anastomosis 7. Left lower quadrant adhesions from sigmoid colon undisturbed
[2018-07-05] MEDS ORDERED: ACETAMINOPHEN ORAL SUSP 160 MG/5 ML CUP PO PRN (13:32)
[2018-07-05 14:22] LABS: Glucose,Whole Blood 220 mg/dL (75-99)
[2018-07-05 15:19] VITALS: BMI 50.2
[2018-07-05] MEDS: 0.9% NACL WITH KCL 20 MEQ/L 1,000 ML IV SCH (15:57)
[2018-07-05] MEDS: ONDANSETRON 4 MG/2 ML VIAL IVP PRN (16:07)
[2018-07-05] MEDS: ALBUTEROL NEBULIZED 2.5 MG/3 ML INHALATION SCH ×2 (16:12→20:10)
[2018-07-05] MEDS: HYOSCYAMINE ORAL DROPS 1.875 MG/15 ML BOTTLE PO SCH (17:44)
[2018-07-05] MEDS: SIMETHICONE 40 MG/0.6 ML DROPS 2,000 MG/30 ML BOTTLE PO SCH (17:45)
[2018-07-05] MEDS: HYDROmorphone 1 MG/ML 1 ML SYRINGE IVP PRN (20:50)
[2018-07-06] MEDS: 0.9% NACL WITH KCL 20 MEQ/L 1,000 ML IV SCH ×2 (00:44→06:02)
[2018-07-06] MEDS: ONDANSETRON 4 MG/2 ML VIAL IVP PRN (00:47)
[2018-07-06] MEDS: SIMETHICONE 40 MG/0.6 ML DROPS 2,000 MG/30 ML BOTTLE PO SCH ×3 (00:54→12:16)
[2018-07-06] MEDS: HYOSCYAMINE ORAL DROPS 1.875 MG/15 ML BOTTLE PO SCH ×3 (00:56→12:19)
[2018-07-06] MEDS: HYDROmorphone 1 MG/ML 1 ML SYRINGE IVP PRN ×3 (00:56→09:25)
[2018-07-06] MEDS: LACTATED RINGERS 1,000 ML IV SCH (03:49)
[2018-07-06 07:27] LABS: Basophils % (A) 0 %; Eosinophils % (A) 0 %; HCT 42.1 % (34.0-46.0); HGB 13.8 gm/dL (11.4-16.0); Lymphocytes # (A) 1.5 k/uL (1.0-4.8); Lymphocytes % (A) 8 %; MCH 28.7 pg (25.0-35.0); MCHC 32.7 g/dL (31.0-37.0); MCV 87.8 fL (80.0-100.0); Mean Platelet Volume 7.3; Monocytes # (A) 0.9 k/uL (0-1.0); Monocytes % (A) 5 %; Neutrophils # (A) 16.2 k/uL (1.3-7.7); Neutrophils % (A) 86 %; Platelet Count 434 k/uL (150-450); RDW 15.1 % (11.5-15.5); WBC 18.8 k/uL (3.8-10.6)
[2018-07-06 07:38] LABS: Anion Gap 6 mmol/L; Blood Urea Nitrogen 6 mg/dL (7-17); Calcium 8.8 mg/dL (8.4-10.2); Carbon Dioxide 28 mmol/L (22-30); Chloride 106 mmol/L (98-107); Phosphorus 3.5 mg/dL (2.5-4.5); Potassium 4.8 mmol/L (3.5-5.1); Sodium 140 mmol/L (137-145)
[2018-07-06] MEDS ORDERED: 0.9% NACL WITH KCL 20 MEQ/L 1,000 ML IV SCH (08:00)
[2018-07-06] MEDS ORDERED: DEXAMETHASONE SOD PHOSPHATE 10 MG/ML 1 ML VIAL IV STA (08:57)
[2018-07-06] MEDS ORDERED: ENOXAPARIN 40 MG/0.4 ML SYRINGE SQ SCH (09:00)
[2018-07-06] MEDS ORDERED: PANTOPRAZOLE 40 MG/10 ML VIAL IV SCH (09:00)
[2018-07-06] MEDS: ALBUTEROL NEBULIZED 2.5 MG/3 ML INHALATION SCH ×3 (09:05→16:01)
--- NOTE | 2018-07-06 09:58 | P.PN ---
Subjective Progress Note Date: 07/05/18 She reports nausea upon ambulation. She is urinating well. Pain is controlled. Objective - Vital Signs Vital signs: Vital Signs Temp 98.5 F 07/06/18 06:51 Pulse 75 07/06/18 08:55 Resp 20 07/06/18 08:55 BP 122/76 07/06/18 06:51 Pulse Ox 95 07/06/18 08:55 Intake & Output 07/05/18 07/06/18 07/06/18 18:59 06:59 18:59 Intake Total 1800 1200 Output Total 290 Balance 1510 1200 Weight 134.9 kg Intake: IV 1800 Intake, IV Titration 1200 Amount 0.9% NaCl with KCl 20 Meq 1200 /l 1,000 ml @ 150 mls/hr IV .[id number] JOON Rx#: [id number] Oral 0 Output: Urine 285 Estimated Blood Loss 5 Other: # Voids 1 - Exam ABDOMEN: Soft. Non-distended. Mild left upper quadrant incisional tenderness. Dressing clean dry and intact. - Labs CBC & Chem 7: 07/06/18 07:07 07/06/18 07:07 Labs: Abnormal Lab Results - Last 24 Hours (Table) 07/05/18 07/06/18 07/06/18 Range/Units 14:20 07:07 07:07 WBC 18.8 H (3.8-10.6) k/uL Neutrophils # 16.2 H (1.3-7.7) k/uL BUN 6 L (7-17) mg/dL POC Glucose (mg/dL) 220 H (75-99) mg/dL Assessment and Plan (1) Morbid obesity due to excess calories Current Visit: Yes Status: Acute Code(s): E66.01 - MORBID (SEVERE) OBESITY DUE TO EXCESS CALORIES SNOMED Code(s): 060931504 (2) BMI 50.0-59.9, adult Current Visit: Yes Status: Acute Code(s): Z68.43 - BODY MASS INDEX (BMI) 50- 59.9 , ADULT SNOMED Code(s): 855445669 (3) Status post gastric bypass for obesity Current Visit: Yes Status: Acute Code(s): Z98.84 - BARIATRIC SURGERY STATUS SNOMED Code(s): 333592419 Plan: 1. Decadron for nausea. 2. Patient reports that she is tolerating Dilaudid. Will try [place] elixir. 3. Potential discharge today
[2018-07-06] MEDS: HYDROcodone/APAP 15 ML SOLUTION PO SCH ×2 (10:22→15:43)
[2018-07-06 15:51] VITALS: BP 138/74; PULSE 63; RESP 16; TEMP 97.6
[2018-07-07] MEDS ORDERED: BISACODYL 5 MG TABLET.DR PO PRN (08:00)
== END 2018-07-06 16:10 | disposition home or self-care (01) | DRG 621 ==
LOC: 2ORMAIN 07-05 07:30 → 3SUR 07-05 13:37
PROVIDERS: ADMIT Surgery Plastic and Reconstructive Surgery; ATTEND Surgery Plastic and Reconstructive Surgery
PROC: 8E0W4CZ Robotic Assisted Procedure of Trunk Region, Percutaneous Endoscopic Approach (ICD-10-PCS; 2018-07-05)
PROC: 0DJ08ZZ Inspection of Upper Intestinal Tract, Via Natural or Artificial Opening Endoscopic (ICD-10-PCS; 2018-07-05)
PROC: 0D164ZA Bypass Stomach to Jejunum, Percutaneous Endoscopic Approach (ICD-10-PCS; principal; 2018-07-05 09:55)
PROC: 0FT44ZZ Resection of Gallbladder, Percutaneous Endoscopic Approach (ICD-10-PCS; 2018-07-05 09:55)
DX: E66.01 Morbid (severe) obesity due to excess calories (principal); E55.9 Vitamin D deficiency, unspecified; E78.1 Pure hyperglyceridemia; G47.33 Obstructive sleep apnea (adult) (pediatric); I11.9 Hypertensive heart disease without heart failure; K21.9 Gastro-esophageal reflux disease without esophagitis; K44.9 Diaphragmatic hernia without obstruction or gangrene; K80.20 Calculus of gallbladder without cholecystitis without obstruction; M16.0 Bilateral primary osteoarthritis of hip; M17.0 Bilateral primary osteoarthritis of knee; R73.03 Prediabetes; Z68.43 Body mass index [BMI] 50.0-59.9, adult; Z83.3 Family history of diabetes mellitus; Z90.710 Acquired absence of both cervix and uterus; R94.31 Abnormal electrocardiogram [ECG] [EKG]; Z88.5 Allergy status to narcotic agent; Z88.0 Allergy status to penicillin; Z71.3 Dietary counseling and surveillance; M54.5 Low back pain
CPT/HCPCS: 80051; 82310; 82565; 83735; 84100; 84520; 85025; 86850; 86900; 86901; 88304; 94760; 94762

== ENCOUNTER → 2018-06-30 | Outpatient (CLI) | payer OTHER ==
--- NOTE | 2018-06-30 14:31 | US ---
EXAMINATION TYPE: US gallbladder DATE OF EXAM: 06/30/2018 COMPARISON: NONE CLINICAL HISTORY: 48-year-old female R10.11 RUQ Abd Pain, Cholecystitis. TECHNIQUE: Multiple sonographic images of the right upper quadrant are obtained. FINDINGS: EXAM MEASUREMENTS: Liver Length: 15.1 cm Gallbladder Wall: 0.2 cm CBD: 0.5 cm Right Kidney: 12.0 x 5.8 x 5.6 cm Pancreas: Obscured by bowel gas Liver: Partially Obscured by overlying bowel gas, echogenic appearance, possibly fatty infiltration. Gallbladder: Multiple shadowing, mobile gallstones there is no abnormal distention, wall thickening, or pericholecystic fluid. Evidence for sonographic Barry's sign: No CBD: wnl Right Kidney: wnl IMPRESSION: 1. There is bowel gas shadowing obscuring portions of the liver. Visualized portions have an echogeni c appearance suggesting fatty infiltration. 2. Cholelithiasis without evidence for acute cholecystitis.
== END | disposition home or self-care (01) ==
LOC: RADUSWWP 09:20
PROVIDERS: ATTEND Surgery Plastic and Reconstructive Surgery
DX: K80.20 Calculus of gallbladder without cholecystitis without obstruction (principal)
CPT/HCPCS: 76705

== ENCOUNTER → 2018-06-30 | Outpatient (CLI) | payer OTHER ==
[2018-06-30 10:42] LABS: Basophils % (A) 0 %; Eosinophils # (A) 0.1 k/uL (0-0.7); Eosinophils % (A) 1 %; HCT 44.3 % (34.0-46.0); HGB 14.9 gm/dL (11.4-16.0); Lymphocytes # (A) 2.5 k/uL (1.0-4.8); Lymphocytes % (A) 29 %; MCH 29.4 pg (25.0-35.0); MCHC 33.7 g/dL (31.0-37.0); MCV 87.3 fL (80.0-100.0); Mean Platelet Volume 7.4; Monocytes # (A) 0.4 k/uL (0-1.0); Monocytes % (A) 4 %; Neutrophils # (A) 5.6 k/uL (1.3-7.7); Neutrophils % (A) 65 %; Platelet Count 381 k/uL (150-450); RBC 5.08 m/uL (3.80-5.40); RDW 14.7 % (11.5-15.5); WBC 8.7 k/uL (3.8-10.6)
[2018-06-30 11:11] LABS: ALT 37 U/L (9-52); AST 25 U/L (14-36); Albumin 4.2 g/dL (3.5-5.0); Alkaline Phosphatase 76 U/L (38-126); Anion Gap 7 mmol/L; Blood Urea Nitrogen 14 mg/dL (7-17); Calcium 9.5 mg/dL (8.4-10.2); Carbon Dioxide 29 mmol/L (22-30); Chloride 103 mmol/L (98-107); Glucose 107 mg/dL (74-99); Potassium 4.6 mmol/L (3.5-5.1); Sodium 139 mmol/L (137-145); Total Bilirubin 0.5 mg/dL (0.2-1.3); Total Protein 6.8 g/dL (6.3-8.2)
== END | disposition home or self-care (01) ==
LOC: LABPAT 09:25
PROVIDERS: ATTEND Surgery Plastic and Reconstructive Surgery
DX: Z01.812 Encounter for preprocedural laboratory examination (principal); I10 Essential (primary) hypertension
CPT/HCPCS: 36415; 80053; 85025

== ENCOUNTER → 2018-07-09 | Outpatient (CLI) | payer OTHER ==
[2018-07-09 10:58] VITALS: PULSE 71; TEMP 98
[2018-07-09 11:01] VITALS: BP 129/57; BMI 50.6
--- NOTE | 2018-07-09 12:51 | P.PN ---
Subjective Progress Note Date: 07/09/18 DATE OF SERVICE: 07/09/2018 CHIEF COMPLAINT: Status post gastric bypass HISTORY OF PRESENT ILLNESS: Enid Yang is a 48-year-old female who is status post gastric bypass 07/05/2018. She is 1 week out. Her highest weight was 348 pounds. Today she comes in weighing 294 pounds. Her previous weight was 309 pounds. She has lost 15 pounds in 1 month. At her height of 5 feet 4 inches, her ideal body weight is 144 pounds. Her body mass index reduced from 59.9 down to 50.7. Her pain is well-controlled. She is tolerating diet. No fevers or chills. She is passing flatus and having bowel movement. Total lifetime weight loss of 54 pounds. Percent excess weight loss is 26%. PHYSICAL EXAM: VITAL SIGNS: Height 5 foot 4 inches, weight 294 pounds. BMI 50.7 Vital Signs Temp 98.0 F 07/09/18 10:54 Pulse 71 07/09/18 10:54 Resp BP 129/57 07/09/18 10:54 Pulse Ox GENERAL: Well-developed in no acute distress. HEENT: No scleral icterus. Extraocular movements grossly intact. Hears conversational speech. No nasal drainage. NECK: Supple without lymphadenopathy. CHEST: Nonlabored respirations with equal bilateral excursions. CARDIOVASCULAR: Regular rate, regular rhythm. Distal 2+ pulses. ABDOMEN: Dressing discontinued. No cellulitis or infections. Wound well approximated. Soft, nontender. MUSCULOSKELETAL: No clubbing, cyanosis. Gross strength 5/5 distal lower extremities. NEURO: No focal or lateralizing signs. Cranial nerves 2 through 12 grossly within normal limits. PSYCH: Appropriate affect. Alert and oriented to person, place and time. SKIN: Good skin turgor. Well perfused. ASSESSMENT: 1. Morbid obesity due to excess calories. 2. Body mass index of 59.9 down to 50.7 3. Status post gastric bypass PLAN: 1. Follow-up in 2 weeks. 2. Bariatric stage II diet advised Objective - Vital Signs Vital signs: Vital Signs Temp 98.0 F 07/09/18 10:54 Pulse 71 07/09/18 10:54 Resp BP 129/57 07/09/18 10:54 Pulse Ox Intake & Output 08/07/09/18 07/09/18 18:59 06:59 18:59 Weight 133.855 kg
== END ==
LOC: BARWHC3 09:43
PROVIDERS: ATTEND Surgery Plastic and Reconstructive Surgery
DX: Z48.815 Encounter for surgical aftercare following surgery on the digestive system (principal); E66.01 Morbid (severe) obesity due to excess calories; Z98.84 Bariatric surgery status; Z68.43 Body mass index [BMI] 50.0-59.9, adult
CPT/HCPCS: 99211

== ENCOUNTER → 2018-08-04 | Outpatient (CLI) | payer OTHER ==
--- NOTE | 2018-08-04 15:32 | P.PN ---
Subjective Progress Note Date: 08/04/18 HPI: No GERD. No issues. Lost 40 pounds in 2 months. ABDOMEN: No signs of infection. PLAN: 1. Recommend labs 2. She is doing well 3. Gallstones 4. Recommend MVI. 5. Hold on blood work until September 2019, 3 months post op
[2018-08-04 15:40] VITALS: BP 135/60; PULSE 66; RESP 16; TEMP 98.1; BMI 47.7
--- NOTE | 2018-08-28 15:45 | P.PN ---
Progress Note - Text Progress Note Date: 08/28/18 Yesterday, patient reported dysphagia after having yogurt and pretzels. She also reported intolerance to her protein shakes. She was advised to drink thin liquids such as water and diluted juice. This morning, her nausea is resolved. She is tolerating liquids. Bariatric diet and food textures were reviewed.
== END | disposition home or self-care (01) ==
LOC: BARWHC3 13:47
PROVIDERS: ATTEND Surgery Plastic and Reconstructive Surgery
DX: R13.10 Dysphagia, unspecified (principal); E66.01 Morbid (severe) obesity due to excess calories; Z68.42 Body mass index [BMI] 45.0-49.9, adult
CPT/HCPCS: 97803; 99211

== ENCOUNTER → 2018-11-03 | Outpatient (CLI) | payer OTHER ==
--- NOTE | 2018-11-03 14:30 | P.PN ---
Subjective Progress Note Date: 11/03/18 HPI: Highest weight of 348 pounds. Lost 100+ pounds. She has history of chronic panniculitis. She uses deoderant on the skin for her pannus for her symptoms. She is 4 months. No appetite. No GERD. She is experiencing hair loss. ABDOMEN: No hernia. PLAN: 1. She has no issues. 2. Blood work done at [place] 3. Medical reconcilliaton of vitamins performed
[2018-11-03 14:43] VITALS: BMI 41.7
== END | disposition home or self-care (01) ==
LOC: BARWHC3 13:16
PROVIDERS: ATTEND Surgery Plastic and Reconstructive Surgery
DX: E66.01 Morbid (severe) obesity due to excess calories (principal); Z68.41 Body mass index [BMI] 40.0-44.9, adult
CPT/HCPCS: 97803; 99211

== ENCOUNTER → 2019-02-23 | Outpatient (CLI) | payer OTHER ==
--- NOTE | 2019-02-23 14:46 | P.PN ---
Subjective Progress Note Date: 02/23/19 DATE OF SERVICE: 02/23/2019 CHIEF COMPLAINT: Status post gastric bypass HISTORY OF PRESENT ILLNESS: Enid Yang is a 49-year-old female who is status post gastric bypass 07/05/2018. She is 8 months out. Her highest weight was 348 pounds. Today she comes in weighing 226 pounnds from 242 pounds, 4 m onths ago. She has lost 17 pounds in 4 months. She has lost 100+ pounds. She is doing well. No gastroesophageal reflux disease. She is ahead of the curve with her weight loss. She uses deodorant and creams to control for her panniculitis. She comes in with complaints with her pannus. At her height of 5 feet 4 inches, her ideal body weight is 144 pounds. Her body mass index reduced from 59.9 down to 38.8. Total lifetime weight loss of 122 pounds. Percent excess weight loss is 60 %. PHYSICAL EXAM: VITAL SIGNS: Height 5 foot 4 inches, weight 226 pounds. BMI 38.8 GENERAL: Well-developed in no acute distress. HEENT: No scleral icterus. Extraocular movements grossly intact. Hears co nversational speech. No nasal drainage. NECK: Supple without lymphadenopathy. CHEST: Nonlabored respirations with equal bilateral excursions. CARDIOVASCULAR: Regular rate, regular rhythm. Distal 2+ pulses. ABDOMEN: Soft, nontender. Nondistended. No hernia MUSCULOSKELETAL: No clubbing, cyanosis. Gross strength 5/5 distal lower extremities. NEURO: No focal or lateralizing signs. Cranial nerves 2 through 12 grossly within normal limits. PSYCH: Appropriate affect. Alert and oriented to person, place and time. SKIN: Good skin turgor. Well perfused. ASSESSMENT: 1. Morbid obesity due to excess calories. 2. Body mass index of 59.9 down to 38.8 3. Status post gastric bypass 4. Panniculitis 5. Iron deficiency anemia PLAN: 1. Nystatin powder for panniculitis 2. Recommend bariatric labs [facility] 4. We reviewed that plateau to be expected as she is 7 months out Laboratory Last Values WBC 10.9 k/uL (3.8-10.6) H 02/23/19 15:16 RBC 5.02 m/uL (3.80-5.40) 04/03/19 15:16 Hgb 15.1 gm/dL (11.4-16.0) 02/23/19 15:16 Hct 45.0 % (34.0-46.0) 02/23/19 15:16 MCV 89.8 fL (80.0-100.0) 02/23/19 15:16 MCH 30.0 pg (25.0-35.0) 02/23/19 15:16 MCHC 33.4 g/dL (31.0-37.0) 02/23/19 15:16 RDW 15.0 % (11.5-15.5) 02/23/19 15:16 Plt Count 500 k/uL (150-450) H 02/23/19 15:16 PT 10.3 sec (9.0-12.0) 02/23/19 15:16 INR 1.0 (<1.2) 02/23/19 15:16 APTT 25.2 sec (22.0-30.0) 02/23/19 15:16 Sodium 140 mmol/L (135-145) 02/23/19 15:16 Potassium 4.6 mmol/L (3.5-5.5) 02/23/19 15:16 Chloride 104 mmol/L (96-109) 02/23/19 15:16 Carbon Dioxide 28.4 mmol/L (21.6-31.8) 02/23/19 15:16 Anion Gap 7.60 mmol/L (4.00-12.00) 02/23/19 15:16 BUN 16.0 mg/dL (9.0-27.0) 02/23/19 15:16 Creatinine 0.7 mg/dL (0.6-1.5) 02/23/19 15:16 Est GFR (CKD-EPI)AfAm 116.3 (60.0-200.0) 02/23/19 15:16 Est GFR (CKD-EPI)NonAf 100.3 (60.0-200.0) 02/23/19 15:16 BUN/Creatinine Ratio 22.86 Ratio (12.00-20.00) H 02/23/19 15:16 Glucose 93 mg/dL (70-110) 02/23/19 15:[address] Glu mg/dL 111 02/23/19 15:16 Hemoglobin A1c 5.5 % (4.0-6.0) 02/23/19 15:16 Calcium 9.6 mg/dL (8.7-10.3) 02/23/19 15:16 Phosphorus 4.4 mg/dL (2.4-5.1) 02/23/19 15:16 Magnesium 2.2 mg/dL (1.5-2.4) 02/23/19 15:16 Iron 49 ug/dL (50-170) L 02/23/19 15:16 TIBC 270 ug/dL (228-460) 02/23/19 15:16 Iron Saturation 18.15 (12.00-45.00) 02/23/19 15:16 Ferritin 124.2 ng/mL (10.0-291.0) 02/23/19 15:16 Total Bilirubin 0.5 mg/dL (0.3-1.2) 02/23/19 15:16 AST 28 U/L (13-35) 02/23/19 15:16 ALT 36 U/L (8-44) 02/23/19 15:16 Alkaline Phosphatase 97 U/L (41-126) 02/23/19 15:16 Total Protein 6.2 g/dL (6.2-8.2) 02/23/19 15:16 Albumin 4.20 g/dL (3.80-4.90) 02/23/19 15:16 Globulin 2.0 g/dL (1.6-3.3) 02/23/19 15:16 Albumin/Globulin Ratio 2.10 g/dL (1.60-3.17) 02/23/19 15:16 Prealbumin 21.0 mg/dL (18.0-42.0) 02/23/19 15:16 Triglycerides 117.0 mg/dL (0.0-149.0) 02/23/19 15:16 Cholesterol 145 mg/dL (0-200) 02/23/19 15:16 LDL Cholesterol, Calc 77.6 mg/dL (0.0-131.0) 02/23/19 15:16 VLDL Cholesterol, Calc 23.40 mg/dL (5.00-40.00) 02/23/19 15:16 HDL Cholesterol 44.0 mg/dL (40.0-60.0) 02/23/19 15:16 Cholesterol/HDL Ratio 3.30 02/23/19 15:16 Vitamin A 46 ug/dL (38-106) 02/23/19 15:16 Vitamin B1 130 ug/L (38-122) H 02/23/19 15:16 Vitamin B12 897.0 pg/mL (200.0-944.0) 02/23/19 15:16 Vitamin D 25-Hydroxy 38.1 ng/mL (30.0-100.0) 02/23/19 15:16 Folate 22.5 ng/mL 02/23/19 15:16 TSH 0.860 uIU/mL (0.350-5.500) 02/23/19 15:16 PTH Intact 50.6 pg/mL (14.0-72.0) 02/23/19 15:16 Copper 1398 ug/L (810-1990) 02/23/19 15:16 Selenium 154 mcg/L (63-160) 02/23/19 15:16 Zinc 63 ug/dL (60-130) 02/23/19 15:16 Objective - Labs CBC & Chem 7: 02/23/19 15:16 02/23/19 15:16
[2019-02-23 15:18] VITALS: BMI 38.7
[2019-02-23 15:48] LABS: HGB 15.1 gm/dL (11.4-16.0); MCHC 33.4 g/dL (31.0-37.0); MCV 89.8 fL (80.0-100.0); Mean Platelet Volume 7.7; Platelet Count 500 k/uL (150-450); RBC 5.02 m/uL (3.80-5.40); WBC 10.9 k/uL (3.8-10.6)
[2019-02-23 15:52] LABS: Partial Thromboplastin Time 25.2 sec (22.0-30.0); Prothrombin Time 10.3 sec (9.0-12.0)
[2019-02-24 01:01] LABS: Hemoglobin A1C 5.5 % (4.0-6.0)
[2019-02-24 01:41] LABS: Parathyroid Hormone Intact 50.6 pg/mL (14.0-72.0)
[2019-02-24 01:47] LABS: African American GFR (CKD) 116.3 (60.0-200.0); Albumin 4.2 g/dL (3.80-4.90); Albumin/Globulin Ratio 2.1 (1.60-3.17); Anion Gap 7.6 mmol/L (4.00-12.00); BUN/Creat Ratio 22.86 Ratio (12.00-20.00); Calcium 9.6 mg/dL (8.7-10.3); Carbon Dioxide 28.4 mmol/L (21.6-31.8); LDL Cholesterol,Calculated 77.6 mg/dL (0.0-131.0); Magnesium 2.2 mg/dL (1.5-2.4); Phosphorus 4.4 mg/dL (2.4-5.1); Potassium 4.6 mmol/L (3.5-5.5); Total Bilirubin 0.5 mg/dL (0.3-1.2); Total Protein 6.2 g/dL (6.2-8.2); VLDL Calculation 23.4 mg/dL (5.00-40.00)
[2019-02-24 01:53] LABS: Iron Saturation 18.15 (12.00-45.00)
[2019-02-24 02:01] LABS: Vitamin D 25 Hydroxy 38.1 ng/mL (30.0-100.0)
[2019-02-24 02:03] LABS: Folate, Serum 22.5 ng/mL
[2019-02-24 13:43] LABS: Zinc, Serum 63 ug/dL (60-130)
[2019-02-25 06:34] LABS: Vit B1(Thiamine) 130 ug/L (38-122)
[2019-02-25 06:46] LABS: Vitamin A 46 ug/dL (38-106)
[2019-02-26 12:12] LABS: Selenium 154 mcg/L (63-160)
== END ==
LOC: BARWHC3 13:09
PROVIDERS: ATTEND Surgery Plastic and Reconstructive Surgery
DX: E89.1 Postprocedural hypoinsulinemia (principal); K90.89 Other intestinal malabsorption; Z98.84 Bariatric surgery status; E44.0 Moderate protein-calorie malnutrition; E66.01 Morbid (severe) obesity due to excess calories; M79.3 Panniculitis, unspecified; Z68.43 Body mass index [BMI] 50.0-59.9, adult; D50.8 Other iron deficiency anemias; E55.9 Vitamin D deficiency, unspecified; K74.1 Hepatic sclerosis; T56.894A Toxic effect of other metals, undetermined, initial encounter; Z68.38 Body mass index [BMI] 38.0-38.9, adult
CPT/HCPCS: 36415; 80053; 80061; 82306; 82525; 82607; 82728; 82746; 83036; 83540; 83550; 83735; 83970; 84100; 84134; 84255; 84425; 84443; 84590; 84630; 85027; 85610; 85730; 97803; 99211

== ENCOUNTER → 2019-06-01 | Outpatient (CLI) | payer OTHER ==
[2019-06-01 13:21] VITALS: BP 123/56; PULSE 55; TEMP 97.9; BMI 36.6
--- NOTE | 2019-06-01 13:33 | P.PN ---
Subjective Progress Note Date: 06/01/19 DATE OF SERVICE: 06/01/2019 CHIEF COMPLAINT: Panniculitis HISTORY OF PRESENT ILLNESS: Enid Yang is a 49-year-old female who is status post gastric bypass 07/05/2018. She is 1 year out. Her highest weight was 348 pounds. Now she comes in 213 pounds. She reports using deoderant along the skin to manage symptoms of panniculitis. She reports severe ulcerations along the interginous folds of the abdomen. She reports having similar problems along the breasts. She has no GERD. She has troubles with all types of chicken and eggs. She can tolerate ground meat and pork. She reports concerns along her arms as well. She comes in with new problems of panniculitis. At her height of 5 feet 4 inches, her ideal body weight is 144 pounds. Her highest weight is 348 pounds. Today she comes in 213 pounds from 226 pounds from 3 months ago. She has lost another 13 pounds in 3 months. Her body mass index reduced from 59.9 down to 36.6. Total lifetime weight loss of 135 pounds. Percent excess weight loss is 66 %. PAST MEDICAL HISTORY: 1. Morbid obesity. 2. Body mass index of 59.9, initial 3. Lower back pain. 4. Bladder incontinence. 5. Panniculitis PAST SURGICAL HISTORY: 1. Appendectomy. 2. . 3. Gastric bypass HOME MEDICATIONS: Home Medications Medication Instructions Recorded Confirmed Multivitamin,Therapeutic [Thera] 1 each PO DAILY 11/04/18 06/01/19 Cholecalciferol (Vitamin D3) 10,000 unit PO DAILY 06/06/19 06/06/19 [Vitamin D3] Zinc 60 mg PO DAILY 06/06/19 06/06/19 Previous Rx's Medication Instructions Recorded Nystatin 100,000 Unit/gm Powd 1 applic TOPICAL BID #60 powder 02/23/19 [Mycostatin Powder] Nystatin 100,000 Unit/gm Powd 1 applic TOPICAL BID #60 powder 06/01/19 [Mycostatin Powder] ALLERGIES: PENICILLIN gives her rash. CODEINE gives her vomiting. SOCIAL HISTORY: No active tobacco use. FAMILY HISTORY: No family history of ulcerative colitis disease or Crohn's disease. Family history of morbid obesity. No lupus in family. No reports of stomach or esophageal cancer. Family history of diabetes. Family history of gallbladder disease and thyroid disorder. REVIEW OF ORGAN SYSTEMS: CONSTITUTIONAL: Her highest weight was 348 pounds. At her height of 5 feet 4 inches, her ideal body weight is 144 pounds.Her body mass index was 59.9. HEENT: Denies any active troubles with vision or hearing. No troubles with swallowing. ENDOCRINE: No diabetes. No hypothyroidism. CARDIOVASCULAR: No reports of palpitations or heart attacks or chest pain. RESPIRATORY: No daytime somnolence including snoring and sleep apnea. No asthma. GI: Denies any bright red blood per rectum. No gastroesophageal reflux disease as described above. MUSCULOSKELETAL: Has lower back pain and joint pain. Has osteoarthritis of the hips and knees. NEURO: No headaches. No seizure disorders. PSYCH: No depression. No suicidal ideation. RHEUMATOLOGIC: No lupus. No rheumatoid arthritis. HEMATOLOGIC: Denies any abnormal bleeding or bruising. No personal history of DVTs. SKIN: No rash. No skin cancer. PHYSICAL EXAM: VITAL SIGNS: Height 5 foot 4 inches, weight 213 pounds. BMI 36.6 Vital Signs Temp 97.9 F 06/01/19 12:58 Pulse 55 L 06/01/19 12:58 Resp BP 123/56 06/01/19 12:58 Pulse Ox GENERAL: Well-developed in no acute distress. HEENT: No scleral icterus. Extraocular movements grossly intact. Hears conversational speech. No nasal drainage. NECK: Supple without lymphadenopathy. CHEST: Nonlabored respirations with equal bilateral excursions. CARDIOVASCULAR: Regular rate, regular rhythm. Distal 2+ pulses. ABDOMEN: Soft, nontender. Nondistended. No large incisional hernia. Moderate panniculitis MUSCULOSKELETAL: No clubbing, cyanosis. Gross strength 5/5 distal lower extremities. NEURO: No focal or lateralizing signs. Cranial nerves 2 through 12 grossly within normal limits. PSYCH: Appropriate affect. Alert and oriented to person, place and time. SKIN: Good skin turgor. Well perfused. ASSESSMENT: 1. Morbid obesity due to excess calories. 2. Body mass index of 59.9 down to 36.6 3. Status post gastric bypass 4. Panniculitis 5. Iron deficiency anemia PLAN: 1. Recommend panniculectomy for chronic panniculitis with concomittant severe lower back pain and uncontrolled symptoms despite systemic and local treatment including limitation of activities of daily living. Anticipated resection of 40+ pounds described. 2. Recommend 2 week protein diet for optimal recovery 3. Risks of bleeding, needs for drains, flap failure, infection, need for further surgery were described. 4. She also has persistent leukocytosis pre-existent and will need post-op antibiotics. 5. Inpatient hospitalization also described 6. Nystatin powder for treatment of panniculitis 7. Panniculectomy packet for panniculectomy 8. Correction of nutritional deficiencies Laboratory Last Values WBC 10.4 k/uL (3.8-10.6) 06/01/19 13:55 RBC 4.57 m/uL (3.80-5.40) 06/01/19 13:55 Hgb 13.8 gm/dL (11.4-16.0) 06/01/19 13:55 Hct 41.9 % (34.0-46.0) 06/01/19 13:55 MCV 91.7 fL (80.0-100.0) 06/01/19 13:55 MCH 30.2 pg (25.0-35.0) 06/01/19 13:55 MCHC 32.9 g/dL (31.0-37.0) 06/01/19 13:55 RDW 14.3 % (11.5-15.5) 06/01/19 13:55 Plt Count 488 k/uL (150-450) H 06/01/19 13:55 PT 10.3 sec (9.0-12.0) 06/01/19 13:55 INR 1.0 (<1.2) 06/01/19 13:55 APTT 25.6 sec (22.0-30.0) 06/01/19 13:55 Sodium 144 mmol/L (135-145) 06/01/19 13:55 Potassium 4.6 mmol/L (3.5-5.5) 06/01/19 13:55 Chloride 107 mmol/L (96-109) 06/01/19 13:55 Carbon Dioxide 30.0 mmol/L (21.6-31.8) 06/01/19 13:55 Anion Gap 7.00 mmol/L (4.00-12.00) 06/01/19 13:55 BUN 16.0 mg/dL (9.0-27.0) 06/01/19 13:55 Creatinine 0.8 mg/dL (0.6-1.5) 06/01/19 13:55 Est GFR (CKD-EPI)AfAm 98.9 (60.0-200.0) 06/01/19 13:55 Est GFR (CKD-EPI)NonAf 85.4 (60.0-200.0) 06/01/19 13:55 BUN/Creatinine Ratio 20.00 Ratio (12.00-20.00) 06/01/19 13:55 Glucose 96 mg/dL (70-110) 06/01/19 13:[address] Glu mg/dL 114 06/01/19 13:55 Hemoglobin A1c 5.6 % (4.0-6.0) 06/01/19 13:55 Calcium 9.2 mg/dL (8.7-10.3) 06/01/19 13:55 Phosphorus 4.4 mg/dL (2.4-5.1) 06/01/19 13:55 Magnesium 2.1 mg/dL (1.5-2.4) 06/01/19 13:55 Iron 60 ug/dL (50-170) 06/01/19 13:55 TIBC 257 ug/dL (228-460) 06/01/19 13:55 Iron Saturation 23.35 (12.00-45.00) 06/01/19 13:55 Ferritin 98.8 ng/mL (10.0-291.0) 06/01/19 13:55 Total Bilirubin 0.5 mg/dL (0.3-1.2) 06/01/19 13:55 AST 25 U/L (13-35) 06/01/19 13:55 ALT 28 U/L (8-44) 06/01/19 13:55 Alkaline Phosphatase 105 U/L (41-126) 06/01/19 13:55 Total Protein 5.7 g/dL (6.2-8.2) L 06/01/19 13:55 Albumin 4.00 g/dL (3.80-4.90) 06/01/19 13:55 Globulin 1.7 g/dL (1.6-3.3) 06/01/19 13:55 Albumin/Globulin Ratio 2.35 g/dL (1.60-3.17) 06/01/19 13:55 Prealbumin 19.0 mg/dL (18.0-42.0) 06/01/19 13:55 Triglycerides 154.0 mg/dL (0.0-149.0) H 06/01/19 13:55 Cholesterol 151 mg/dL (0-200) 06/01/19 13:55 LDL Cholesterol, Calc 75.2 mg/dL (0.0-131.0) 06/01/19 13:55 VLDL Cholesterol, Calc 30.80 mg/dL (5.00-40.00) 06/01/19 13:55 HDL Cholesterol 45.0 mg/dL (40.0-60.0) 06/01/19 13:55 Cholesterol/HDL Ratio 3.36 06/01/19 13:55 Vitamin A 41 ug/dL (38-106) 06/01/19 13:55 Vitamin B1 140 ug/L (38-122) H 06/01/19 13:55 Vitamin B12 899.0 pg/mL (200.0-944.0) 06/01/19 13:55 Vitamin D 25-Hydroxy 20.0 ng/mL (30.0-100.0) L 06/01/19 13:55 Folate >24.0 ng/mL 06/01/19 13:55 TSH 0.870 uIU/mL (0.350-5.500) 06/01/19 13:55 PTH Intact 65.4 pg/mL (14.0-72.0) 06/01/19 13:55 Copper 953 ug/L (810-1990) 06/01/19 13:55 Selenium 141 mcg/L (63-160) 06/01/19 13:55 Zinc 57 ug/dL (60-130) L 06/01/19 13:55 Vitamin D is low Zinc is low Objective - Vital Signs Vital signs: Vital Signs Temp 97.9 F 06/01/19 12:58 Pulse 55 L 06/01/19 12:58 Resp BP 123/56 06/01/19 12:58 Pulse Ox Intake & Output 05/31/19 06/01/19 06/01/19 18:59 06:59 18:59 Weight 96.615 kg - Labs CBC & Chem 7: 06/01/19 13:55 06/01/19 13:55
[2019-06-01 14:09] LABS: HCT 41.9 % (34.0-46.0); HGB 13.8 gm/dL (11.4-16.0); MCH 30.2 pg (25.0-35.0); MCHC 32.9 g/dL (31.0-37.0); MCV 91.7 fL (80.0-100.0); Mean Platelet Volume 7.5; Platelet Count 488 k/uL (150-450); RBC 4.57 m/uL (3.80-5.40); RDW 14.3 % (11.5-15.5); WBC 10.4 k/uL (3.8-10.6)
[2019-06-01 14:28] LABS: Partial Thromboplastin Time 25.6 sec (22.0-30.0); Prothrombin Time 10.3 sec (9.0-12.0)
[2019-06-01 19:03] LABS: Iron Saturation 23.35 (12.00-45.00)
[2019-06-01 19:04] LABS: African American GFR (CKD) 98.9 (60.0-200.0); Albumin/Globulin Ratio 2.35 (1.60-3.17); Calcium 9.2 mg/dL (8.7-10.3); Chol/HDL Ratio 3.36; Globulin 1.7 g/dL (1.6-3.3); LDL Cholesterol,Calculated 75.2 mg/dL (0.0-131.0); Magnesium 2.1 mg/dL (1.5-2.4); Phosphorus 4.4 mg/dL (2.4-5.1); Potassium 4.6 mmol/L (3.5-5.5); Total Bilirubin 0.5 mg/dL (0.3-1.2); Total Protein 5.7 g/dL (6.2-8.2); VLDL Calculation 30.8 mg/dL (5.00-40.00)
[2019-06-01 19:12] LABS: Ferritin 98.8 ng/mL (10.0-291.0)
[2019-06-01 20:21] LABS: Folate, Serum >24.0 ng/mL
[2019-06-01 21:55] LABS: Hemoglobin A1C 5.6 % (4.0-6.0)
[2019-06-02 13:05] LABS: Zinc, Serum 57 ug/dL (60-130)
[2019-06-03 06:46] LABS: Vitamin A 41 ug/dL (38-106)
[2019-06-03 07:29] LABS: Vit B1(Thiamine) 140 ug/L (38-122)
[2019-06-04 17:30] LABS: Selenium 141 mcg/L (63-160)
== END | disposition home or self-care (01) ==
LOC: BARWHC3 12:46
PROVIDERS: ATTEND Surgery Plastic and Reconstructive Surgery
DX: E66.01 Morbid (severe) obesity due to excess calories (principal); E55.9 Vitamin D deficiency, unspecified; M79.3 Panniculitis, unspecified; Z98.84 Bariatric surgery status; E21.1 Secondary hyperparathyroidism, not elsewhere classified; E89.1 Postprocedural hypoinsulinemia; D50.9 Iron deficiency anemia, unspecified; E44.0 Moderate protein-calorie malnutrition; K74.1 Hepatic sclerosis; N19 Unspecified kidney failure; K50.90 Crohn's disease, unspecified, without complications; Z68.36 Body mass index [BMI] 36.0-36.9, adult
CPT/HCPCS: 80053; 80061; 82306; 82525; 82607; 82728; 82746; 83036; 83540; 83550; 83735; 83970; 84100; 84134; 84255; 84425; 84443; 84590; 84630; 85027; 85610; 85730; 99211

== ENCOUNTER → 2022-12-24 | Outpatient (CLI) | payer OTHER ==
[2022-12-24 14:56] VITALS: BP 115/75; PULSE 55; RESP 13; TEMP 98.4; BMI 39.1
--- NOTE | 2022-12-24 15:29 | P.HPBAR ---
Bariatric H&P - History & Physicial H&P Date: 12/24/22 History & Physicial: Visit/CC: follow up Patient initial contact: August 2017 Initial weight: 140.659 kg Initial weight in pounds: 310.10 Height: 5 ft 4 in Initial BMI: 53.2 Last weight: Current weight: 103.419 kg Current weight in pounds: 228.00 Current BMI: 39.1 Ald[place] body weight (based on NIH guidelines): 54.431 kg Excess body weight loss: 43.1% The patient is a 52 year-old F who presents for Bariatric Assessment. 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 She has needed iron levels. 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 She needs bariatric labs. She feels well. She reports feeling tired after her infusions. She has gained 20 pounds from her new medications. Back surgery was 2020. She has been lost to follow up from 2018. She had clots in Oct 2021. Food diary journal, 80 gram of daily. 80 oz fluids daily. Recommend bariatric labs in detail. FU in 1 month. She has occasional dysphagia, EGD with dilation. Past Medical History Past Medical History: No Reported History Additional Past Medical History / Comment(s): borderline diabetes-watches diet History of Any Multi-Drug Resistant Organisms: None Reported Past Surgical History: Appendectomy, Bariatric Surgery, Section, Cholecystectomy, Hysterectomy Additional Past Surgical History / Comment(s): gastric bypass 07-05-18 Past Anesthesia/Blood Transfusion Reactions: No Reported Reaction Past Psychological History: No Psychological Hx Reported Smoking Status: Never smoker Past Alcohol Use History: None Reported Past Drug Use History: None Reported - Past Family History Mother Family Medical History: Cancer Surgical - Exam Vital Signs Temp Pulse Resp BP 98.4 F 55 L 13 115/75 12/24/22 14:48 12/24/22 14:48 12/24/22 14:48 12/24/22 14:48 Bariatric Checklist Checklist: Plan: Checklist: EGD: 1. Hiatal hernia: 2. H. Pylori: HgbA1c: Vitamin D: Smoking: Never smoker Primary care physician referral: Dr Tere Lawrence Psychiatry clearance: Cardiology clearance: Sleep study: Diet journal: VTE risk score: VTE risk level: Rehab needs at discharge:
[2022-12-24 17:41] LABS: INR 0.9 (<1.2); Prothrombin Time 9.7 sec (9.0-12.0)
[2022-12-24 17:42] LABS: Partial Thromboplastin Time 26.7 sec (22.0-30.0)
[2022-12-24 23:31] LABS: % Iron Saturation 19.13 (12.00-45.00); ALT 40 U/L (8-44); AST 32 U/L (13-35); African American GFR (CKD) 118.1 (60.0-200.0); Albumin 4.5 g/dL (3.8-4.9); Albumin/Globulin Ratio 1.91 (1.60-3.17); Alkaline Phosphatase 122 U/L (41-126); BUN/Creat Ratio 28.43 Ratio (12.00-20.00); Blood Urea Nitrogen 17.8 mg/dL (9.0-27.0); Calcium 9.7 mg/dL (8.7-10.3); Carbon Dioxide 26.5 mmol/L (20.0-27.5); Chloride 102 mmol/L (96-109); Chol/HDL Ratio 3.05 Ratio; Globulin 2.3 g/dL (1.6-3.3); Glucose 93 mg/dL (70-110); HCT 43.9 % (37.2-46.3); HGB 14.4 g/dL (12.0-15.0); Iron 60 ug/dL (50-170); LDL Cholesterol,Calculated 80.2 mg/dL (0.0-131.0); MCH 30.4 pg (27.0-32.0); MCHC 32.8 g/dL (32.0-37.0); MCV 92.6 fL (80.0-97.0); Magnesium 2.3 mg/dL (1.5-2.4); Mean Platelet Volume 10.9 fL (9.5-12.2); NRBC Per 100 WBC 0 /100 WBCS (0.0-0.0); Non-African American GFR(CKD) 101.9 (60.0-200.0); Phosphorus 4.1 mg/dL (2.4-5.1); Platelet Count 272 X 10*3/uL (140-440); Potassium 4.9 mmol/L (3.5-5.5); Prealbumin 21.2 mg/dL (18.0-42.0); RBC 4.74 X 10*6/uL (4.10-5.20); RDW 13.3 % (11.5-14.5); Sodium 142 mmol/L (135-145); Total Iron Binding Capacity 314 ug/dL (228-460); Total Protein 6.8 g/dL (6.2-8.2); WBC 6.82 X 10*3/uL (4.50-10.00)
[2022-12-26 07:24] LABS: Vitamin A 64 ug/dL (38-106)
== END ==
LOC: BARWHC3 14:03
PROVIDERS: ATTEND Surgery Plastic and Reconstructive Surgery
DX: E66.01 Morbid (severe) obesity due to excess calories (principal); Z68.39 Body mass index [BMI] 39.0-39.9, adult; E89.1 Postprocedural hypoinsulinemia; D50.8 Other iron deficiency anemias; D50.9 Iron deficiency anemia, unspecified; K91.2 Postsurgical malabsorption, not elsewhere classified; E44.0 Moderate protein-calorie malnutrition; E44.1 Mild protein-calorie malnutrition; E45 Retarded development following protein-calorie malnutrition; E46 Unspecified protein-calorie malnutrition; E55.9 Vitamin D deficiency, unspecified; K74.1 Hepatic sclerosis; N19 Unspecified kidney failure; T56.894A Toxic effect of other metals, undetermined, initial encounter; K50.90 Crohn's disease, unspecified, without complications; Z88.5 Allergy status to narcotic agent; Z88.0 Allergy status to penicillin
CPT/HCPCS: 80053; 80061; 82306; 82607; 82728; 82746; 83036; 83540; 83550; 83735; 83970; 84100; 84134; 84425; 84443; 84590; 85027; 85610; 85730; 99211

== ENCOUNTER → 2023-04-22 | Outpatient (CLI) | payer OTHER ==
[2023-04-22 13:08] VITALS: BP 113/72; PULSE 65; TEMP 98.2; BMI 38.9
--- NOTE | 2023-04-22 13:37 | P.BASOAP ---
Subjective Progress Note Date: 04/22/23 She does not have a food journal. She reports not having enough time to record her food. She recorded for 1 week 3 months ago then stopped. She reports trouble eating meet with dysphagia and getting sick. She avoids meat as a result. She has troubles with eggs. Recommend journal. Labs reviewed. Has dyshagia from sliding hiatal hernia. Recommend hiatal hernia repair as she is symptomatic. Labs are reviewed. Zinc replacement. Objective - Vital Signs Vital signs: Vital Signs Temp 98.2 F 04/22/23 13:03 Pulse 65 04/22/23 13:03 Resp BP 113/72 04/22/23 13:03 Pulse Ox FiO2 Intake & Output 04/21/23 04/22/23 04/22/23 18:59 06:59 18:59 Weight 102.965 kg Assessment/Plan Plan: Date: 04/22/23 Initial Weight: 140.659 kg Initial BMI: 53.2 Current Weight: 102.965 kg Current BMI: 38.9 Type of Surgery: Total Volume in Band: Previous Volume: Volume Removed: Volume Added: Band Size:
== END ==
LOC: BARWHC3 12:30
PROVIDERS: ATTEND Surgery Plastic and Reconstructive Surgery
DX: E66.01 Morbid (severe) obesity due to excess calories (principal); Z68.38 Body mass index [BMI] 38.0-38.9, adult; Z88.5 Allergy status to narcotic agent; Z88.0 Allergy status to penicillin
CPT/HCPCS: 99211

== ENCOUNTER → 2023-06-25 | Outpatient (CLI) | payer OTHER ==
[2023-06-25 16:52] LABS: INR 0.9 (<1.2); Partial Thromboplastin Time 28.7 sec (22.0-30.0); Prothrombin Time 10.1 sec (9.0-12.0)
[2023-06-25 21:02] LABS: % Iron Saturation 12.29 (12.00-45.00); BUN/Creat Ratio 23.83 Ratio (12.00-20.00); Blood Urea Nitrogen 14.3 mg/dL (9.0-27.0); Chloride 105 mmol/L (96-109); Chol/HDL Ratio 2.83 Ratio; Glucose 119 mg/dL (70-110); Iron 36 UG/DL (50-170); LDL Cholesterol,Calculated 35.4 mg/dL (0.0-131.0); Magnesium 2.3 mg/dL (1.5-2.4); Phosphorus 3.5 mg/dL (2.4-5.1); Potassium 4.2 mmol/L (3.5-5.5); Sodium 141 mmol/L (135-145); Total Iron Binding Capacity 293 UG/DL (228-460)
[2023-06-25 21:03] LABS: ALT 28 U/L (8-44); AST 25 U/L (13-35); Albumin 4.3 d/dL (3.8-4.9); Albumin/Globulin Ratio 1.95 Ratio (1.60-3.17); Alkaline Phosphatase 109 U/L (41-126); Calcium 9.3 mg/dL (8.7-10.3); Carbon Dioxide 27.2 mmol/L (21.6-31.8); Globulin 2.2 d/dL (1.6-3.3); Total Bilirubin 0.3 mg/dL (0.3-1.2); Total Protein 6.5 d/dL (6.2-8.2)
[2023-06-25 21:20] LABS: HCT 41.7 % (37.2-46.3); HGB 13.9 d/dL (12.0-15.0); MCH 30.5 pg (27.0-32.0); MCHC 33.3 d/dL (32.0-37.0); MCV 91.6 FL (80.0-97.0); Mean Platelet Volume 11.4 FL (9.5-12.2); NRBC Per 100 WBC 0 X 10*3/uL (0.00-0.01); Platelet Count 283 X 10*3/uL (140-440); RBC 4.55 X 10*6/uL (4.10-5.20); RDW 13.9 % (11.5-14.5); WBC 6.92 X 10*3/uL (4.50-10.00)
[2023-06-25 21:46] LABS: Prealbumin 17.4 mg/dL (18.0-42.0)
[2023-06-26 11:36] LABS: Zinc, Serum 63 ug/dL (60-130)
[2023-06-30 06:16] LABS: Vitamin A 44 ug/dL (38-106)
[2023-07-01 07:55] LABS: Selenium 148 mcg/L (63-160)
[2023-07-01 08:52] LABS: Vit B1(Thiamine) 104 ug/L (38-122)
== END | disposition home or self-care (01) ==
LOC: LABWHC1 15:50
PROVIDERS: ATTEND Surgery Plastic and Reconstructive Surgery
DX: E66.01 Morbid (severe) obesity due to excess calories (principal); E89.1 Postprocedural hypoinsulinemia; D50.8 Other iron deficiency anemias; K91.2 Postsurgical malabsorption, not elsewhere classified; E44.0 Moderate protein-calorie malnutrition; E44.1 Mild protein-calorie malnutrition; E45 Retarded development following protein-calorie malnutrition; E46 Unspecified protein-calorie malnutrition; E55.9 Vitamin D deficiency, unspecified; K74.1 Hepatic sclerosis; N19 Unspecified kidney failure; T56.894A Toxic effect of other metals, undetermined, initial encounter; K50.90 Crohn's disease, unspecified, without complications; R00.1 Bradycardia, unspecified; R94.31 Abnormal electrocardiogram [ECG] [EKG]
CPT/HCPCS: 36415; 80053; 80061; 82306; 82525; 82607; 82728; 82746; 83036; 83540; 83550; 83735; 83970; 84100; 84134; 84255; 84425; 84443; 84590; 84630; 85027; 85610; 85730; 93005